=== PATIENT | male | born 1990 | race Caucasian/White ===

== ENCOUNTER 2024-02-01 06:46 | Emergency (ER) | payer BC, SELFPAY ==
[2024-02-01 06:49] VITALS: BP 124/83; PULSE 87; TEMP 36.4; O2SAT 96; BMI 38.1
--- NOTE | 2024-02-01 07:01 | CT_ITS ---
[address] [address] Patient Name: SID VALENTINE MRN: [id number] date: 1990 Sex: M Assigned Patient Location: ER Current Patient Location: Accession/Order Number: [id number] Exam Date: 02/01/2024 08:45 Report Date: 02/01/2024 09:57 At the request of: ERICKA WHITMAN Procedure: CT abdomen pelvis w con EXAMINATION: CT abdomen pelvis w con INDICATION: Abdominal pain, nausea and vomiting, possible hematemesis. COMPARISON: None. TECHNIQUE: Multiple contiguous axial CT images of the abdomen and pelvis were obtained after the administration of intravenous contrast. Sagittal and coronal reconstructions were performed. Dose reduction techniques were achieved by using: automated exposure control and/or adjustment of mA and /or kV according to patient size and/or use of iterative reconstruction technique. FINDINGS: LOWER CHEST: No significant abnormality. ABDOMEN AND PELVIS: LIVER: Diffuse fatty infiltration. BILIARY SYSTEM: Normal gallbladder. No biliary ductal dilatation. PANCREAS: Unremarkable. SPLEEN: Enlarged spleen measuring 19 cm in craniocaudal dimension. ADRENAL GLANDS: Normal. URINARY SYSTEM: Nonobstructing 3 mm right renal stone. Normal left kidney. No hydronephrosis or urolithiasis. Normal bladder. REPRODUCTIVE: Unremarkable. GASTROINTESTINAL TRACT: Normal caliber bowel. No bowel wall thickening or inflammation. Normal appendix. VESSELS: Nonaneurysmal abdominal aorta. Patent abdominal vasculature. LYMPH NODES: No adenopathy. PERITONEUM: No ascites or pneumoperitoneum. MUSCULOSKELETAL: SOFT TISSUES: Unremarkable soft tissues. BONES: No acute osseous abnormality or suspicious osseous lesion. CENTENO: (series:image) CT/CT abdomen pelvis w con IMPRESSION: 1. No acute abdominal or pelvic process. 2. Right nephrolithiasis. 3. Hepatic steatosis. 4. Splenomegaly. Electronically authenticated by: SENAIT BRENNER Date: 02/01/2024 09:57
--- NOTE | 2024-02-01 07:04 | ED_ITS ---
HPI - Nausea/Vomiting/Diarrhea General Chief complaint: Nausea/Vomiting/Diarrhea Stated complaint: VOMITING Time Seen by Provider: 02/01/24 06:59 Source: patient Mode of arrival: walk-in Limitations: no limitations History of Present Illness HPI Narrative: After one week of diarrhea and nausea, the patient began vomiting last night. He vomited all throughout the night with some of the bouts of emesis looking l yonatan coffee grounds . No blood in stool. He denied any recent travel outside of the area. no known ill exposures. Had admitted to some vague, diffuse abdominal cramping. No focal abd pain. No flank or back pain. No headache, neck pain, visual changes or fever/chills. He denied any urinary complaints. This morning he drank a small cup of water and so far he has not vomited that up. He sad that his diarrhea stopped about 12 hours ago. He takes semaglutide. PMHx includes HTN, depression, anxiety On further discussion, he admitted to about 6-8 months of intermittent GI symptoms including nausea, abdominal cramping and diarrhea. Related Data Home Medications ?Medication ?Instructions ?Recorded ?Confirmed alprazolam 0.5 mg tablet mg 02/01/24 fluvoxamine 50 mg tablet mg 02/01/24 metoprolol tartrate 50 mg tablet mg 02/01/24 semaglutide (weight loss) 2.4 mg subcut 02/01/24 mg/0.75 mL subcutaneous pen injector (Karelyvy) Previous Rx's ?Medication ?Instructions ?Recorded ondansetron 4 mg disintegrating 4 mg PO Q6H PRN nausea and 02/01/24 tablet vomiting #20 tabs Allergies Allergy/AdvReac Type Severity Reaction Status Date / Time amoxicillin Allergy Unknown Unknown Verified 02/01/24 06:53 cefaclor [From Ceclor] Allergy Unknown Unknown Verified 02/01/24 06:53 Sulfa (Sulfonamide Allergy Unknown Unknown Verified 02/01/24 06:53 Antibiotics) sulfamethoxazole Allergy Unknown Unknown Verified 02/01/24 06:53 [From Bactrim] trimethoprim [From Bactrim] Allergy Unknown Unknown Verified 02/01/24 06:53 Exam Narrative Exam Narrative: Nurses notes and vital signs reviewed and patient is not hypoxic. afebrile General: Well-appearing and in no apparent distress. Skin: Warm, dry, no pallor noted. No rash. Neck: Supple, non-tender. No meningismus Eye: Pupils are equal, round and EOMI. No scleral icterus. Ears, Nose, Mouth, and Throat: Oral mucosa is dry Cardiovascular: Regular Rate and Rhythm without murmur, gallop or rub. Respiratory: No accessory muscle use or respiratory distress. Lungs are clear to auscultation, no wheezing, rales or rhonchi Back: No CVA tenderness Musculoskeletal: normal ROM GI: Abdomen is soft, non-distended. Normal bowel sounds. No masses appreciated. No tenderness to palpation. No rebound, guarding, or rigidity noted. Neurological: A&O x4. No cranial nerve dysfunction observed. No truncal ataxia. Moves all extremities. Sensation intact. Psychiatric: Cooperative and interactive. Normal mood and affect. Constitutional Vital Signs, click to edit/add: Last Vital Signs Temp 97.6 F 02/01/24 06:49 Pulse 87 02/01/24 06:49 Resp 16 02/01/24 06:49 BP 124/83 02/01/24 06:49 Pulse Ox 96 02/01/24 06:49 O2 Del Method Room Air 02/01/24 06:49 Course Vital Signs Vital signs: Vital Signs Temperature 97.6 F 02/01/24 06:49 Pulse Rate 87 02/01/24 06:49 Respiratory Rate 16 02/01/24 06:49 Blood Pressure 124/83 02/01/24 06:49 Pulse Oximetry 96 02/01/24 06:49 Oxygen Delivery Method Room Air 02/01/24 06:49 Temperature 97.6 F 02/01/24 06:49 Pulse Rate 87 02/01/24 06:49 Respiratory Rate 16 02/01/24 06:49 Blood Pressure 124/83 02/01/24 06:49 Pulse Oximetry 96 02/01/24 06:49 Oxygen Delivery Method Room Air 02/01/24 06:49 MDM - Nausea/Vomiting/Diarrhea MDM Narrative Medical decision making narrative: After I saw and examined the patient, I asked the nurse to establish peripheral IV access. Blood was drawn and sent for testing. Patient received a liter of normal saline IV fluid, IV Zofran and IV Phenergan. He was ordered to undergo CT scanning of the abdomen pelvis with both oral and IV contrast To further evaluate his complaint of possible hematemesis And help determine a cause for his vomiting and diarrhea. Results - White blood cell count minimally elevated at 11.3. Hemoglobin, hematocrit and platelets are normal. No left shift noted. Normal CMP, negative Lipase. CT did not reveal any acute abdominal or pelvic process. He does have incidental finding of hepatic steatosis, mild splenomegaly and right nephrolithiasis without ureterolithiasis. Patient with decreased nausea and no vomiting or diarrhea after ED treatment while the patient awaited test results. Discussed his use of semaglutide - starting about one year ago - and subsequent development of increased GI symptoms - cramping, nausea, diarrhea - about 2 months after that. But he admitted that he has been suffering from GI symptoms for 8 or more years. We discussed keeping a food diary and following up with Dr Andrea on an out-patient basis to be re-evaluated and discuss need for GI referral, if necessary. Results of all Emergency Department tests were reviewed with the patient. Diagnosis discussed. Patient was discharged home with prescription for Zofran, instruction to maintain clear liquid diet and advance as tolerated. ED return if she worsens Lab Data Attestation: I reviewed the patient's lab results. Labs: Lab Results 02/01/24 Range/Units 07:15 WBC 11.3 H (4.0-11.0) 10^3/uL RBC 5.64 (4.70-6.10) 10^6/uL Hgb 16.4 (14.0-18.0) g/dL Hct 46.2 (42.0-54.0) % MCV 81.9 (80.0-94.0) fL MCH 29.1 (25.9-34.0) pg MCHC 35.5 H (29.9-35.2) g/dL RDW 12.8 (11.0-15.0) % Plt Count 242 (150-450) 10^3/uL MPV 10.1 (9.5-13.5) fL Neut % (Auto) 73.2 (43.0-75.0) % Lymph % (Auto) 15.0 L (20.5-60.0) % [place] % (Auto) 7.6 (1.7-12.0) % Eos % (Auto) 3.4 (0.9-7.0) % Baso % (Auto) 0.4 (0.2-2.0) % Neut # (Auto) 8.3 H (1.4-6.5) 10^3/uL Lymph # (Auto) 1.7 (1.2-3.8) 10^3/uL [place] # (Auto) 0.9 H (0.3-0.8) 10^3/uL Eos # (Auto) 0.4 (0.0-0.7) 10^3/uL Baso # (Auto) 0.0 (0.0-0.1) 10^3/uL Abs Immat Gran (auto) 0.04 H (0.00-0.03) 10^3/uL Imm/Tot Granulo (auto) 0.4 (0.0-0.5) % Sodium 137 (136-145) mmol/L Potassium 4.0 (3.5-5.1) mmol/L Chloride 101 (98-107) mmol/L Carbon Dioxide 27.4 (21.0-32.0) mmol/L Anion Gap 12.6 BUN 12.0 (7.0-18.0) mg/dL Creatinine 1.11 (0.70-1.30) mg/dL Est GFR ( Amer) >60 (>=60) Est GFR (Non-Af Amer) >60 (>=60) BUN/Creatinine Ratio 10.8 Glucose 97 (74-106) mg/dL Calcium 9.5 (8.5-10.1) mg/dL Total Bilirubin 0.8 (0.2-1.0) mg/dL AST 23 (15-37) U/L ALT 47 (16-63) U/L Alkaline Phosphatase 78 (46-116) U/L Total Protein 7.5 (6.4-8.2) g/dL Albumin 4.3 (3.4-5.0) g/dL Globulin 3.2 g/dL Albumin/Globulin Ratio 1.3 Lipase 32.0 (16.0-77.0) U/L Imaging Data CT scan - abdomen: Radiologist's impression: ITS Impressions Abdomen/Pelvis CT 02/01/24 07:01 IMPRESSION: 1. No acute abdominal or pelvic process. 2. Right nephrolithiasis. 3. Hepatic steatosis. 4. Splenomegaly. Electronically authenticated by: SENAIT BRENNER Date: 02/01/2024 09:57 Discharge Plan Discharge Stand Alone Forms: Portal Instructions Chief Complaint: Nausea/Vomiting/Diarrhea Clinical Impression: Gastroenteritis Patient Disposition: Home, Self-Care Time of Disposition Decision: 10:08 Prescriptions / Home Meds: New ondansetron 4 mg tablet,disintegrating 4 mg PO Q6H PRN (Reason: nausea and vomiting) Qty: 20 0RF No Action alprazolam 0.5 mg tablet metoprolol tartrate 50 mg tablet fluvoxamine 50 mg tablet Wegovy 2.4 mg/0.75 mL pen injector SUBCUT Print Language: Italian Instructions: Gastroenteritis (ED), Acute Nausea and Vomiting (ED) Referrals: ANTONIETA ANDREA [Primary Care Provider] - 1 week
[2024-02-01] MEDS: ONDANSETRON PF 4 MG/2 ML VIAL IV (07:24)
[2024-02-01] MEDS: PROMETHAZINE HCL 12.5 MG in 0.9 % SODIUM CHLORIDE 50 ML 202 MG IV (07:24)
[2024-02-01] MEDS: 0.9 % SODIUM CHLORIDE 1,000 ML 999 ML IV (07:24)
[2024-02-01 07:25] LABS: Basophils Percent Auto 0.4 % (0.2-2.0); Eosinophils Absolute Auto 0.4 10^3/uL (0.0-0.7); Eosinophils Percent Auto 3.4 % (0.9-7.0); Hematocrit 46.2 % (42.0-54.0); Hemoglobin 16.4 g/dL (14.0-18.0); Immature Granulocytes Abs Auto 0.04 10^3/uL (0.00-0.03); Immature Granulocytes Pct Auto 0.4 % (0.0-0.5); Lymphocytes Absolute Auto 1.7 10^3/uL (1.2-3.8); Mean Corpuscular HGB Conc 35.5 g/dL (29.9-35.2); Mean Corpuscular Hemoglobin 29.1 pg (25.9-34.0); Mean Corpuscular Volume 81.9 fL (80.0-94.0); Mean Platelet Volume 10.1 fL (9.5-13.5); Monocytes Absolute Auto 0.9 10^3/uL (0.3-0.8); Monocytes Percent Auto 7.6 % (1.7-12.0); Neutrophils Absolute Auto 8.3 10^3/uL (1.4-6.5); Neutrophils Percent Auto 73.2 % (43.0-75.0); Platelet Count 242 10^3/uL (150-450); Red Blood Count 5.64 10^6/uL (4.70-6.10); Red Cell Distribution Width 12.8 % (11.0-15.0); White Blood Count 11.3 10^3/uL (4.0-11.0)
[2024-02-01] MEDS: PANTOPRAZOLE SODIUM 40 MG VIAL IV (07:39)
[2024-02-01 07:40] LABS: Alanine Aminotransferase 47 U/L (16-63); Albumin Globulin Ratio 1.3; Albumin Level 4.3 g/dL (3.4-5.0); Alkaline Phosphatase 78 U/L (46-116); Anion Gap 12.6; Aspartate Amino Transferase 23 U/L (15-37); BUN Creatinine Ratio 10.8; Bilirubin Total 0.8 mg/dL (0.2-1.0); Calcium 9.5 mg/dL (8.5-10.1); Carbon Dioxide 27.4 mmol/L (21.0-32.0); Chloride 101 mmol/L (98-107); Estimated GFR (African America >60 (>=60); Estimated GFR (Non-African Ame >60 (>=60); Globulin 3.2 g/dL; Glucose 97 mg/dL (74-106); Sodium 137 mmol/L (136-145); Total Protein 7.5 g/dL (6.4-8.2)
== END 2024-02-01 10:21 | disposition home or self-care (01) ==
PROVIDERS: Emergency Provider Emergency Medicine; PCP Family Medicine
DX: K52.9 Noninfective gastroenteritis and colitis, unspecified (principal); I10 Essential (primary) hypertension; F32.A Depression, unspecified; F41.9 Anxiety disorder, unspecified
CPT/HCPCS: 36415; 74177; 80053; 83690; 85025; 87045; 87046; 87427; 87493; 87507; 96361; 96365; 96375; 99285; J2250; J2405; Q9966; Q9967

== ENCOUNTER 2024-06-15 09:35 | Emergency (ER) | payer BC, SELFPAY ==
[2024-06-15 09:45] VITALS: BP 129/95; PULSE 90; TEMP 36.8; O2SAT 98; BMI 39.8
--- OUTSIDE RECORDS SUMMARY | 2024-06-15 09:56 | XMS_ITS | CCD ---
Author Organization [facility] Inform ion Partnership [facility] Care Team Providers Care Computer Information Systems Instructor Name Role Phone MADONNA VALENZUELA Consulting Unavailable MADONNA VALENZUELA Attending Unavailable MADONNA VALENZUELA Admitting Unavailable Furlong DOLeonides Primary Care Provider Renetta IMAGE SCIENTIST-BUFFER INFLATED PADTracy Primary Care Provider Furlong DO, Leonides Smalls Primary Care Provider [phone] DOMINICK LIPSCOMB Attending Unavailable TRACY JACKSON Referring Unavailable FURLONG, LEONIDES Smalls Primary Care Unavailable FURLONG, LEONIDES Smalls Attending Unavailable TRACY JACKSON Referring Unavailable FURLONG, LEONIDES Smalls Primary Care Unavailable TRACY JACKSON Attending Unavailable TRACY JACKSON Referring Unavailable TRACY JACKSON Primary Care Unavailable FURLONG, LEONIDES G Attending Unavailable FURLONG, LEONIDES G Referring Unavailable FURLONG, LEONIDES G Primary Care Unavailable DESMOND ALAS Attending Unavailable FURLONG, LEONIDES G Referring Unavailable FURLONG, LEONIDES G Primary Care Unavailable Allergies Allergy Classification Reported Allergen(s) Allergy Type Date of Onset Reaction(s) Facility (12 sources) Amoxicillin; Translations: [AMOXICILLIN (BULK)] Drug Allergy 06-30-19 16 [facility] Work Phone: (12 sources) Cefaclor; Translations: [CEFACLOR] Drug Allergy 06-30-19 16 Hives, [facility] (12 sources) Sulfamethoxazole / Trimethoprim; Translations: [SULFAMETHOXAZOLE-TR IMETHOPRIM] Drug Allergy 07-12-19 12 Hives, Other (See Comments), Critical access hospital (12 sources) Sulfonamides (Antibiotic); Translations: [SULFA (SULFONAMIDE ANTIBIOTICS)] Propensity to adverse reactions to drug 01-11-20 17 Vomiting [facility] (6 sources) Sulfacetamide / Sulfur; Translations: [SULFACETAMIDE [id number]] Drug Allergy 11-25-19 20 Other (See Comments) [facility] Medications Current Medications Medication Drug Class(es) Dates Sig (Normalized) Sig (Original) [id number] 200 actuat albuterol 0.09 mg/actuat metered dose inhaler (4 sources) beta2-Adrenergic Agonist Start: 05-05-2024 take 2 puff(s) by mouth every six hours as needed albuterol (PROVENTIL HFA;VENTOLIN HFA) 90 mcg/actuation inhaler Indications: COVID-19 TAKE 2 PUFFS BY MOUTH EVERY 6 HOURS NEEDED FOR WHEEZE OR FOR SHORTNESS OF BREATH 6.7 g 1 05/05/2024 Active Start: 04-16-2024 End: 05-05-2024 take 2 puff(s) by inhalation every six hours as needed for wheezing albuterol (PROVENTIL HFA;VENTOLIN HFA) 90 mcg/actuation inhaler Indications: COVID-19 Inhale 2 puffs every 6 (six) hours as needed for wheezing or shortness of breath. 6.7 g 04/16/2024 05/05/2024 Discontinued ALPRAZolam 0.5 mg oral tablet (11 sources) Benzodiazepine Start: 01-23-2024 take 1 tablet by mouth once daily as needed for anxiety ALPRAZolam (XANAX) 0.5 mg tablet Indications: Anxiety Take 1 tablet (0.5 mg total) by mouth daily as needed for anxiety. 30 tablet 01/23/2024 Active Start: 03-04-2023 take 1 tablet by ronni th once daily as needed for anxiety ALPRAZolam (XANAX) 0.5 mg tablet Indications: Anxiety Take 1 tablet (0.5 mg total) by mouth daily as needed for anxiety. 30 tablet 0 03/04/2023 Active aspirin 81 mg delayed release oral tablet (11 sources) Platelet Aggregation Inhibitor, Nonsteroidal Anti-inflammatory Drug take 1 tablet by mouth in the morning aspirin 81 mg Take 1 tablet (81 mg total) by mouth in the morning. Active benzonatate 100 mg oral capsule (3 sources) Non-narcotic Antitussive Start: take 1 capsule by mouth three times daily as needed for cough benzonatate (TESSALON PERLES) 100 mg capsule Indications: COVID-19 Take 1 capsule (100 mg total) by mouth 3 (three) times a day as needed for cough. 30 capsule 04/16/2024 Active 24 hr buPROPion hydrochloride 150 mg extended release oral tablet (2 sources) Aminoketone Start: take 1 tablet by mouth once daily in the morning buPROPion XL (WELLBUTRIN XL) 150 mg 24 hr tablet Indications: Generalized anxiety disorder Take 1 tablet (150 mg total) by mouth every morning. 90 tablet 1 08/08/2023 Active fluvoxaMINE maleate 50 mg oral tablet (16 sources) Serotonin Reuptake Inhibitor Start: End: fluvoxaMINE (LUVOX) 50 mg tablet Take 1tablet at bedtime daily 90 tablet 1 04/17/2024 Active Start: 08-16-2023 fluvoxaMINE (L UVOX) 50 mg tablet Take 1.5 tablets at bedtime daily 45 tablet 1 08/16/2023 Active Start: 07-22-2023 End: 08-15-2023 fluvoxaMINE (LUVOX) 50 mg ta blet Take 1.5 tablets at bedtime daily 45 tablet 0 07/22/2023 08/15/2023 Discontinued (Reorder) Start: 04-11-2023 End: 07-19-2023 fluvoxaMINE (LUVOX) 50 mg ta blet Take 1.5 tablets at bedtime daily 45 tablet 1 06/21/2023 07/19/2023 Discontinued (Reorder) ibuprofen 800 mg oral tablet (3 sources) Nonsteroidal Anti-inflammatory Drug Start: 04-16-2024 take 1 tablet by mouth every eight hours as needed for pain ibuprofen (MOTRIN) 800 mg tablet Indications: Chest wall pain Take 1 tablet (800 mg total) by mouth every 8 (eight) hours as needed for pain. 30 tablet 04/16/2024 Active metoprolol tartrate 50 mg oral tablet (14 sources) beta-Adrenergic Yony Start: 01-23-2024 End: 04-16-2024 take 1 tablet by mouth in the morning, then take 1 tablet by mouth at bedtime metoprolol tartrate (LOPRESSOR) 50 mg tablet Take 1 tablet (50 mg total) by mouth in the morning and 1 tablet (50 mg total) before bedtime. 180 tablet 3 04/17/2024 Active Start: 05-24-2023 End: 07-22-2023 take 1 tablet by mouth in the morning, then take 1 tablet by mouth at bedtime metoprolol tartrate (LOPRESSOR) 50 mg tablet Take 1 tablet (50 mg total) by mouth in the morning and 1 tablet (50 mg total) before bedtime. 180 tablet 0 07/22/2023 Active nirmatrelvir-ritonavir (PAXLOVID) tablets (2 sources) Start: 04-16-2024 End: 04-21-2024 take 3 tablets by mouth in the morning nirmatrelvir-ritonavir (PAXLOVID) tablets Indications: COVID-19 Take 3 tablets by mouth in the morning and 3 tablets before bedtime. Do all this for 5 days. HOLD alprazolam while taking this medication. 30 tablet 04/16/2024 04/21/2024 Active semaglutide, weight loss, (WEGOVY) 2.4 mg/0.75 mL pen injector (12 sources) Start: 04-17-2024 semaglutide, weight loss, (WEGOVY) 2.4 mg/0.75 mL pen injector Inject 0.75 mL (2.4 mg total) under the skin every 7 days. 9 mL 04/17/2024 Active Start: 01-28-2024 End: 04-16-2024 semaglutide, weight loss, (W EGOVY) 2.4 mg/0.75 mL pen injector Inject 0.75 mL (2.4 mg total) under the skin every 7 days. 9 mL 01/28/2024 04/16/2024 Discontinued (Reorder) Start: 01-28-2024 semaglutide, w eight loss, (WEGOVY) 2.4 mg/0.75 mL pen injector Inject 0.75 mL (2.4 mg total) under the skin every 7 days. 9 mL 01/28/2024 Active Start: 06-05-2023 semaglutide, w eight loss, (WEGOVY) 2.4 mg/0.75 mL pen injector Inject 0.75 mL (2.4 mg total) under the skin every 7 days. 9 mL 3 06/05/2023 Active Completed/Discontinued Medications Medication Drug Class(es) Dates Sig (Normalized) Sig (Original) loratadine 10 mg oral tablet (7 sources) End: 08-08-2023 take 1 tablet by mouth in the morning loratadine (CLARITIN) 10 mg tablet Take 1 tablet (10 mg total) by mouth in the morning. 0 08/08/2023 Discontinued (Therapy completed) omeprazole 40 mg delayed release oral capsule (1 source) Proton Pump Inhibitor Start: 02-04-2024 End: 04-16-2024 take 1 capsule by mouth in the morning omeprazole (PriLOSEC) 40 mg capsule Take 1 capsule (40 mg total) by mouth in the morning. 30 capsule 1 02/04/2024 04/16/2024 Discontinued (Therapy completed) ondansetron 4 mg disintegrating oral tablet (1 source) Serotonin-3 Receptor Antagonist Start: 02-01-2024 End: 04-16-2024 ondansetron ODT (ZOFRAN ODT) 4 mg disintegrating tablet DISSOLVE 1 (ONE) TABLET ON THE TONGUE EVERY 6 HOURS NEEDED FOR NAUSEA AND VOMITING 02/01/2024 04/16/2024 Discontinued (Therapy completed) semaglutide, weight loss, (WEGOVY) 2.4 mg/0.75 mL pen injector (7 sources) Start: 06-05-2023 End: 08-08-2023 semaglutide, weight loss, (WEGOVY) 2.4 mg/0.75 mL pen injector Indications: Morbid obesity due to excess calories (CMS-HCC) Inject 0.75 mL (2.4 mg total) under the skin every 7 days. 9 mL 3 06/05/2023 08/08/2023 Discontinued (Therapy completed) Start: 06-05-2023 semaglutide, w eight loss, (WEGOVY) 2.4 mg/0.75 mL pen injector Indications: Morbid obesity due to excess calories (CMS-HCC) Inject 0.75 mL (2.4 mg total) under the skin every 7 days. 9 mL 3 06/05/2023 Active Problems Active Problems Problem Classification Problem Date Documented Da te Episodic/Chronic Anxiety disorders (20 sources) Anxiety; Translations: [Anxiety disorder, unspecified] Onset: 10-15-2016 08-09-2022 Chronic Essential hypertension (13 sources) Essential hypertension; Translations: [Essential (primary) hypertension] Onset: 08-09-2022 08-09-2022 Chronic Heart valve disorders (11 sources) Mitral valve prolapse; Translations: [Nonrheumatic mitral (valve) prolapse] Onset: 07-12-2011 08-09-2022 Chronic Other nutritional; endocrine; and metabolic disorders (11 sources) Morbid obesity; Translations: [Morbid (severe) obesity due to excess calories] Onset: 12-28-2016 08-09-2022 Chronic Other nutritional; endocrine; and metabolic disorders (1 source) Body mass index 30+ - obesity; Translations: [Obesity, unspecified] 08-08-2023 Chronic Other nutritional; endocrine; and metabolic disorders (1 source) Morbid (severe) obesity due to excess calories; Translations: [Morbid (severe) obesity due to excess calories] Onset: 08-09-2022 Chronic Other nutritional; endocrine; and metabolic disorders (1 source) Obesity, unspecified; Translations: [Obesity, unspecified] Onset: 08-08-2023 Chronic Pneumonia (except that caused by tuberculosis or sexually transmitted disease) (1 source) Pneumonia, unspecified organism; Translations: [PNEUMONIA UNSPECIFIED ORGANISM] Onset: 12-23-2020 Episodic Residual codes; unclassified (1 source) Reduced libido; Translations: [Decreased libido] 08-08-2023 Episodic Substance-related disorders (1 source) Nicotine dependence, unspecified, uncomplicated; Translations: [Nicotine dependence, unspecified, uncomplicated] Onset: 12-05-2023 Chronic Unclassified (3 sources) CONTACT W/AND (SUSP) EXPOS COVID-19; Translations: [CONTACT W/AND (SUSP) EXPOS COVID-19] Onset: 12-23-2020 Unclassified (1 source) Annual Exam Onset: 12-24-2023 Unclassified (1 source) medication discussion Onset: 12-05-2023 Unclassified (1 source) Weight Check Onset: 08-08-2023 Viral infection (2 sources) Disease caused by 2019-nCoV; Translations: [COVID-19] 04-16-2024 Episodic Viral infection (1 source) COVID-19; Translations: [COVID-19] Onset: 04-16-2024 Past or Other Problems Problem Classification Problem Date Documented Date Episodic/Chronic Acute cerebrovascular disease (11 sources) Cerebrovascular accident; Translations: [Cerebral infarction, unspecified] Onset: 12-28-2016 Resolved: 08-09-2022 08-09-2022 Chronic Cardiac dysrhythmias (20 sources) Atypical atrial flutter; Translations: [Atypical atrial flutter] Onset: 12-28-2016 Resolved: 08-09-2022 08-09-2022 Chronic Cardiac dysrhythmias (11 sources) Palpitations; Translations: [Palpitations] Onset: 07-22-2011 08-09-2022 Episodic Conduction disorders (11 sources) First degree atrioventricular block; Translations: [Atrioventricular block, first degree] Onset: 07-22-2011 Resolved: 08-09-2022 08-09-2022 Chronic Mood disorders (11 sources) Mood disorders Onset: 03-04-2023 Resolved: 02-04-2024 03-04-2023 Nonspecific chest pain (13 sources) Chest pain; Translations: [Chest pain, unspecified] Onset: 07-22-2011 Resolved: 08-09-2022 08-09-2022 Episodic Other and ill-defined heart disease (11 sources) Left ventricular hypertrophy; Translations: [Cardiomegaly] Onset: 12-28-2016 Resolved: 08-09-2022 08-09-2022 Chronic Other and unspecified benign neoplasm (11 sources) Lipoma of abdominal wall; Translations: [Benign lipomatous neoplasm of skin and subcutaneous tissue of trunk] Onset: 09-27-2016 08-09-2022 Episodic Other circulatory disease (11 sources) Disorder of autonomic nervous system; Translations: [Orthostatic hypotension] Onset: 07-14-2011 08-09-2022 Episodic Residual codes; unclassified (1 source) Tobacco use; Translations: [Tobacco use] Onset: 12-24-2023 Episodic Syncope (11 sources) Syncope; Translations: [Syncope and collapse] Onset: 07-12-2011 Resolved: 08-09-2022 08-09-2022 Episodic Transient cerebral ischemia (11 sources) Transient cerebral ischemia; Translations: [Transient cerebral ischemic attack, unspecified] Onset: 08-09-2022 Resolved: 08-09-2022 08-09-2022 Chronic Unclassified (1 source) CONTACT W/AND (SUSP) EXPOS COVID-19; Translations: [CONTACT W/AND (SUSP) EXPOS COVID-19] Onset: 12-17-2020 Unclassified (5 sources) Onset: 08-08-2023 Resolved: 04-16-2024 08-08-2023 Results Test Name Value Interpretation Reference Range Facility COMPREHENSIVE METABOLIC PANE [facility] 12-20-2021 Albumin [Mass/Vol] 5.0 g/dL Normal 3.6-5.1 [facility] Comment on above: Performed By: #### 1 023, 7600 #### [facility] [place] [address] Circular Stuffer: Eddie Kwong MD Albumin/Globulin [Mass ratio] 2.0 {ratio} Normal 1.0-2.5 [facility] Comment on above: Performed By: #### 1 023, 7600 #### [facility] [place] [address] Circular Stuffer: Eddie Kwong MD ALP [Catalytic activity/Vol] 65 U/L Normal 36-130 [facility] Comment on above: Performed By: #### 1 0231, 7600 #### [facility] [place] [address] Circular Stuffer: Eddie Kwong MD ALT [Catalytic activity/Vol] 55 U/L High 9-46 [facility] Comment on above: Performed By: #### 1 0231, 7600 #### [facility] [place] [address] Circular Stuffer: Eddie Kwong MD AST [Catalytic activity/Vol] 32 U/L Normal 10-40 [facility] Comment on above: Performed By: #### 1 0231, 7600 #### [facility] [place] [address] Circular Stuffer: Eddie Kwong MD Bilirubin [Mass/Vol] 0.7 mg/dL Normal 0.2-1.2 [facility] Comment on above: Performed By: #### 1 0231, 7600 #### [facility] of [place] [address] Circular Stuffer: Eddie Kwong MD BUN/CREATININE RATIO NOT APPLICABLE Normal 6-22 [facility] Comment on above: Performed By: #### 1 0231, 7600 #### [facility] of [address], [address] [place] [address] Circular Stuffer: Eddie Kwong MD Calcium [Mass/Vol] 10.2 mg/dL Normal 8.6-10.3 [facility] Comment on above: Performed By: #### 1 023, 7600 #### [facility] of [place] [address] Circular Stuffer: Eddie Kwong MD Chloride [Moles/Vol] 104 mmol/L Normal 98-110 [facility] Comment on above: Performed By: #### 1 023, 7600 #### [facility] of [place] [address] Circular Stuffer: Eddie Kwong MD CO2 [Moles/Vol] 24 mmol/L Normal 20-32 [facility] Comment on above: Performed By: #### 1 0231, 7600 #### [facility] of [place] [address] Circular Stuffer: Eddie Kwong MD Creatinine [Mass/Vol] 0.81 mg/dL Normal 0.60-1.35 [facility] Comment on above: Performed By: #### 1 0231, 7600 #### [facility] of [place] [address] Circular Stuffer: Eddie Kwong MD eGFR NON-AFR. INDONESIAN 118 mL/min/1.73m2 Normal > OR = 60 [facility] Comment on above: Performed By: #### 1 0231, 7600 #### [facility] of [place] [address] Circular Stuffer: Eddie Kwong MD GFR/1.73 sq M.predicted among blacks MDRD (S/P/Bld) [Vol rate/Area] 137 mL/min/{1.73_m2} Normal > OR = 60 [facility] Comment on above: Performed By: #### 1 0231, 7600 #### [facility] [place] [address] Circular Stuffer: Eddie Kwong MD Globulin (S) [Mass/Vol] 2.5 g/dL Normal 1.9-3.7 [facility] Comment on above: Performed By: #### 1 023, 7600 #### [facility] [place] [address] Circular Stuffer: Eddie Kwong MD Glucose [Mass/Vol] 80 mg/dL Normal 65-99 [facility] Comment on above: Result Comment: Fasting reference interval Performed By: #### 1 230, 7600 #### [facility] [place] [address] Circular Stuffer: Eddie Kwong MD Potassium [Moles/Vol] 4.3 mmol/L Normal 3.5-5.3 [facility] Comment on above: Performed By: #### 1 023, 7600 #### [facility] [place] [address] Circular Stuffer: Eddie Kwong MD Protein [Mass/Vol] 7.5 g/dL Normal 6.1-8.1 [facility] Comment on above: Performed By: #### 1 023, 7600 #### [facility] [place] [address] Circular Stuffer: Eddie Kwong MD Sodium [Moles/Vol] 139 mmol/L Normal 135-146 [facility] Comment on above: Performed By: #### 1 0231, 7600 #### [facility] of [place] [address] Circular Stuffer: Eddie Kwong MD Urea nitrogen [Mass/Vol] 11 mg/dL Normal 7-25 [facility] Comment on above: Performed By: #### 1 0231, 7600 #### [facility] [address], [address] [place] [address] Circular Stuffer: Eddie Kwong MD LIPID PANEL, [facility] 0 Cholesterol [Mass/Vol] 216 mg/dL High <200 [facility] Comment on above: Order Comment: FASTI NG:YES FASTING: YES Performed By: #### 1 0231, 7600 #### [facility] [address], [address] [place] [address] Circular Stuffer: Eddie Kwong MD Cholesterol in HDL [Mass/Vol] 60 mg/dL Normal > OR = 40 [facility] Comment on above: Order Comment: FASTI NG:YES FASTING: YES Performed By: #### 1 0231, 7600 #### [facility] [address], [address] [place] [address] Circular Stuffer: Eddie Kwong MD Cholesterol.total/C holesterol in HDL [Mass ratio] 3.6 {ratio} Normal <5.0 [facility] Comment on above: Order Comment: FASTI NG:YES FASTING: YES Performed By: #### 1 0231, 7600 #### [facility] [address], [address] [place] [address] Circular Stuffer: Eddie Kwong MD LDL-CHOLESTEROL Normal [facility] Comment on above: Order Comment: FASTI NG:YES FASTING: YES Result Comment: LDL cholesterol not calculated. Triglyceride levels greater than 400 mg/dL invalidate calculated LDL results. Reference range: <100 Desirable range <100 mg/dL for primary prevention; <70 mg/dL for patients with CHD or diabetic patients with > or = 2 CHD risk factors. LDL-C is now calculated using the Thom calculation, which is a validated novel method providing better accuracy than the Friedewald equation in the estimation of LDL-C. Rafal CHACON et al. ILIANA. 2013;310(19): 9304-6015 (http://education.Commutable.Silent Power/faq/SLO380) Performed By: #### 1 0231, 7600 #### [facility] [address], [address] Circular Stuffer: Eddie Kwong MD NON HDL CHOLESTEROL 156 mg/dL (calc) High <130 [facility] Comment on above: Order Comment: FASTI NG:YES FASTING: YES Result Comment: For patients with diabetes plus 1 major ASCVD risk factor, treating to a non-HDL-C goal of <100 mg/dL (LDL-C of <70 mg/dL) is considered a therapeutic option. Performed By: #### 1 0231, 7600 #### [facility] [address], [address] [place], [place] [id number] Circular Stuffer: Eddie Kwong MD Triglyceride [Mass/Vol] 406 mg/dL High <150 [facility] Comment on above: Order Comment: FASTI NG:YES FASTING: YES Result Comment: If a non-fasting specimen was collected, consider repeat triglyceride testing on a fasting specimen if clinically indicated. Danyel et al. J. of Clin. Lipidol. 2015;9:129-169. Performed By: #### 1 023, 0 #### [facility] [address], [address] [place], [place] [id number] Circular Stuffer: Eddie Kwong MD Covid-19 PCR ([facility])on SARS-CoV-2 (COVID-19) RNA ISABEL+probe Ql (Unsp spec) Not detected Normal NOT DETECTED [facility] Comment on above: Result Comment: This test is not yet approved or cleared by the [place] FDA. When there are no FDA-approved or cleared tests available, and other criteria are met, FDA can make tests available under an emergency access mechanism called an Emergency Use Authorization (EUA). The EUA for this test is supported by the Broadcast Checker of Health and Human Service's (HHS's) declaration that circumstances exist to justify the emergency use of in vitro diagnostics for the detection and/or diagnosis of the virus that causes COVID-19. This EUA will remain in effect (meaning this test can be used) for the duration of the COVID-19 declaration justifying emergency of IVDs, unless it is terminated or revoked by FDA (after which the test may no longer be used). When diagnostic testing is negative, the possibility of a false negative should be considered in the context of a patient's recent exposures and the presence of clinical signs and symptoms consistent with SARS-CoV-2. Performed By: #### C CINDY NEALTB #### [facility] [address] [place] [address] Phoebe Woo SYMPTOMATIC COVID-19 ANTIGEN on 12-17-2020 EUA Statement SEE BELOW Normal [facility] Comment on above: Result Comment: This test has not been FDA cleared or approved, but has been authorized by the FDA under an Emergency Use Authorization (EUA) for use by authorized laboratories certified under CLIA that meet the requirements to perform moderate or high complexity testing. This test has been authorized only for the detection of proteins from SARS-CoV-2, not for any other viruses or pathogens. The emergency use of this test is authorized for the duration of the declaration that circumstances exist justifying the authorization of emergency use of in vitro diagnostic tests for detection and/or diagnosis of Covid-19 under section 564(b)(1) of the Act, 21 U.S.C. 360bbb-3(b)(1), unless the declaration is terminated or authorization is revoked sooner. Performed By: #### C FAYE NEAL #### [facility] [address] [place] [address] Phoebe Woo SARS-CoV-2 (COVID-19) RNA ISABEL+probe Ql (Unsp spec) Negative Normal NEGATIVE [facility] Comment on above: Performed By: #### C VAL CVDTB #### [facility] [address] [place] [address] Phoebe Woo XR chest 2V*on 12-17-2020 XR chest 2V* [facility] [place] [address] [place] [address] XRay Report Signed Patient: Moy Bledsoe MR#: [id number] : 1990 Acct:[id number] Age/Sex: 30 / M ADM Date: 12/17/20 Loc: XDUC Room: Type: [facility] Attending Dr: Madonna MARTINO Ordering Provider: MADONNA VALENZUELA Date of Service: 12/17/20 XR/XR chest 2V*: Contact with and (suspected) exposure to other viral communi Copies to: MADONNA VALENZUELA PA AND LATERAL CHEST: CLINICAL HISTORY: Cough for the past 2 weeks. COMPARISON: None A loop recorder is noted. There is no focal parenchymal consolidation, effusion or pneumothorax. The cardiac, hilar and mediastinal silhouettes are within normal limits. There is no vascular congestion. The visualized bony thorax is intact. XR/XR chest 2V* IMPRESSION: NO ACUTE CARDIOPULMONARY ABNORMALITY. Impression dictated by: Amna Cazares M.D.12/17/2020 10:48 AM Dictation Location: [place] [address] Transcribed By: [facility] 12/17/20 1048 Dictated By: Amna Cazares MD 12/17/20 1047 Signed By: 12/17/20 1048 [facility] Vital Signs Date Time Vital Sign Value Performing Clinician Rocíoi gabe 08-08-2023 08:12-0500 Body height 190.5 cm Tracy Jackson MALINDA Work Phone: [facility] 08-08-2023 08:12-0500 Body mass index (BMI) [Ratio] 39.55 kg/m2 Tracy Jackson JEFFERSON-BUFFER INFLATED PAD Work Phone: [facility] 08-08-2023 08:12-0500 Body temperature 98.2 [degF] Tarcy Jackson ASPENBUFFER INFLATED PAD Work Phone: [facility] 08-08-2023 08:12-0500 Body weight 143.52 kg Tracy Jackson IMAGE SCIENTIST-BUFFER INFLATED PAD Work Phone: [facility] 08-08-2023 08:12-0500 Diastolic blood pressure 60 mm[Hg] Tracy Jackson JEFFERSON-[employer] INFLATED PAD Work Phone: [facility] 08-08-2023 08:12-0500 Heart rate 91 /min Tracy Jackson JEFFERSON[employer]ATED PAD Work Phone: [facility] 08-08-2023 08:12-0500 SaO2% (BldA) [Mass fraction] 96 % Tracy Jackson IMAGE SCIENTIST-BUFFER INFLATED PAD Work Phone: [facility] Desti 08-08-2023 08:12-0500 Systolic blood pressure 110 mm[Hg] Tracy Jackson IMAGE SCIENTIST-BUFFER INFLATED PAD Work Phone: [facility] Encounters Encounter Date Encounter Type Care Provider Facility Start: 05-05-2024 End: 05-05-2024 Refill Desmond Landry Alas IMAGE SCIENTIST-FOAM RUBBER MOLDER Work Phone: [facility] Comment on above: COVID-19 Start: 04-16-2024 End: 04-16-2024 Office outpatient visit 15 minutes Desmond Alas IMAGE SCIENTIST-FOAM RUBBER MOLDER Work Phone: [facility] Comment on above: COVID-19 (Primary Dx ); Chest wall pain Start: 04-16-2024 End: 04-17-2024 Refill [facility] DO Work Phone: [facility] Start: 02-04-2024 End: 02-04-2024 ambulatory [facility] Start: 12-24-2023 End: 12-24-2023 ambulatory [facility] Start: 12-24-2023 Encounter for genera l adult medical examination without abnormal findings [facility] Start: 12-05-2023 End: 12-05-2023 ambulatory [facility] Start: 08-15-2023 Refill Tracy Jackson IMAGE SCIENTIST-BUFFER INFLATED PAD Work Phone: [facility] Start: 08-08-2023 End: 08-08-2023 Office outpatient visit 25 minutes Tracy Jackson IMAGE SCIENTIST-BUFFER INFLATED PAD Work Phone: [facility] Comment on above: Obesity (BMI 30-39.9 ) (Primary Dx); Generalized anxiety disorder; Essential (primary) hypertension; Loss of libido Start: 08-08-2023 End: 08-08-[address] [facility] Start: 07-31-2023 Telephone encounter Leonides Serina Sotelo juan f DO Work Phone: [facility] Start: 07-22-2023 Refill Tracy Jackson IMAGE SCIENTIST-BUFFER INFLATED PAD Work Phone: [facility] Start: 07-19-2023 Refill Leonides huynh DO Work Phone: [facility] Start: 07-11-2023 Refill Abiola Nikki DARIN [facility] Start: 06-20-2023 Refill Tracy Jackson IMAGE SCIENTIST-BUFFER INFLATED PAD Work Phone: [facility] Start: 12-17-2020 End: 12-17-2020 ambulatory MADONNA VALENZUELA Facility: Procedures Date Procedure Procedure Detail Performing Clinician Start: 02-04-2024 Follow-up visit Follow-up LEONIDES ANDREA Start: 02-04-2024 Adult depression screening assessment Desmond Sandersillo IMAGE SCIENTIST-FOAM RUBBER MOLDER Work Phone: Start: 08-08-2023 Adult depression screening assessment Tracy Jackson IMAGE SCIENTIST-BUFFER INFLATED PAD Work Phone: Start: 03-04-2023 Adult depression screening assessment Tracy Jackson IMAGE SCIENTIST-BUFFER INFLATED PAD Work Phone: Plan of Treatment Date Care Activity Detail Author Start: 04-16-2025 Adult BMI Follow Up Plan Adult BMI Follow Up Plan [facility] Start: 04-16-2025 Tobacco Screening Tobacco Screening [facility] Start: 02-03-2025 Adult BMI Screening Adult BMI Screen ing [facility] Start: 02-03-2025 Depression Screening Depression Scre ening [facility] Start: 08-08-2024 Adult BMI Follow Up Plan Adult BMI Follow Up Plan [facility] Start: 08-08-2024 Adult BMI Screening Adult BMI Screen ing [facility] Start: 08-08-2024 Depression Screening Depression Scre ening [facility] Start: 08-08-2024 Tobacco Screening Tobacco Screening [facility] Start: 03-04-2024 Adult BMI Screening Adult BMI Screen ing [facility] Start: 03-04-2024 Depression Screening Depression Scre ening [facility] Start: 03-04-2024 Tobacco Screening Tobacco Screening [facility] Start: 02-16-2024 COVID-19 Vaccine ( season) COVID-19 Vaccine ( season) [facility] Start: 02-16-2024 Influenza vaccination Influenza Vacc ine [facility] Start: 02-15-2023 COVID-19 Vaccine ( season) COVID-19 Vaccine ( season) [facility] Start: 02-15-2023 Influenza vaccination Influenza Vacc ine [facility] Start: 2008 Adult BMI Follow Up Plan Adult BMI Follow Up Plan [facility] Start: 2001 DTaP,Tdap and Td Vaccines (6 - Tdap) DTaP,Tdap and Td Vaccines (6 - Tdap) [facility] Immunizations Immunization Date Immunization Notes Care Provider [facility] 04-24-2023 influenza, injectabl e, quadrivalent, preservative free Tracy Jackson IMAGE SCIENTIST-BUFFER INFLATED PAD Work Phone: [facility] 04-24-2023 influenza virus vaccine, unspecified formulation Desmond Alas IMAGE SCIENTIST-FOAM RUBBER MOLDER Work Phone: [facility] 04-10-2022 Covid-19, Mrna, Lnp- s, Bivalent, Pf, 50mcg/0.5ml or 25mcg/0.25ml Tracy Jackson IMAGE SCIENTIST-BUFFER INFLATED PAD Work Phone: [facility] 04-10-2022 influenza, injectabl e, quadrivalent, contains preservative Tracy Jackson IMAGE SCIENTIST-BUFFER INFLATED PAD Work Phone: [facility] 04-10-2022 influenza virus vaccine, unspecified formulation Tracy Jackson IMAGE SCIENTIST-BUFFER INFLATED PAD Work Phone: [facility] 04-29-2021 influenza, seasonal, injectable Tracy Jackson IMAGE SCIENTIST-BUFFER INFLATED PAD Work Phone: [facility] 10-12-2020 COVID-19, mRNA, LNP- S, PF, 100mcg/0.5mL Dose Tracy Jackson IMAGE SCIENTIST-BUFFER INFLATED PAD Work Phone: [facility] 09-28-2020 COVID-19, mRNA, LNP- S, PF, 100mcg/0.5mL Dose Tracy Jackson IMAGE SCIENTIST-BUFFER INFLATED PAD Work Phone: [facility] 09-14-2020 COVID-19, mRNA, LNP- S, PF, 100mcg/0.5mL Dose Tracy Jackson IMAGE SCIENTIST-BUFFER INFLATED PAD Work Phone: [facility] 04-20-2020 influenza, injectabl e, quadrivalent, contains preservative Tracy Jackson IMAGE SCIENTIST-BUFFER INFLATED PAD Work Phone: [facility] 03-19-2019 Influenza, injectabl e, Madin [place] Canine Kidney, preservative free, quadrivalent Tracy Jackson IMAGE SCIENTIST-BUFFER INFLATED PAD Work Phone: [facility] 06-18-2000 hepatitis B vaccine, pediatric or pediatric/adolescent dosage Tracy Jackson IMAGE SCIENTIST-BUFFER INFLATED PAD Work Phone: [facility] 12-18-1999 hepatitis B vaccine, pediatric or pediatric/adolescent dosage Tracy Jackson IMAGE SCIENTIST-BUFFER INFLATED PAD Work Phone: [facility] 11-17-1999 hepatitis B vaccine, pediatric or pediatric/adolescent dosage Tracy Jackson IMAGE SCIENTIST-BUFFER INFLATED PAD Work Phone: [facility] 09-23-1995 diphtheria, tetanus toxoids and acellular pertussis vaccine, unspecified formulation Trcay Jackson IMAGE SCIENTIST-BUFFER INFLATED PAD Work Phone: [facility] 09-23-1995 measles, mumps and rubella virus vaccine Tracy Jackson IMAGE SCIENTIST-BUFFER INFLATED PAD Work Phone: [facility] 09-23-1995 trivalent poliovirus vaccine, live, oral Tracy Jackson IMAGE SCIENTIST-BUFFER INFLATED PAD Work Phone: [facility] 02-29-1992 diphtheria, tetanus toxoids and pertussis vaccine Tracy Jackson IMAGE SCIENTIST-BUFFER INFLATED PAD Work Phone: [facility] 02-29-1992 trivalent poliovirus vaccine, live, oral Tracy Jackson IMAGE SCIENTIST-BUFFER INFLATED PAD Work Phone: [facility] 12-14-1991 haemophilus influenz ae type b vaccine, conjugate unspecified formulation Tracy Jackson IMAGE SCIENTIST-BUFFER INFLATED PAD Work Phone: [facility] 12-14-1991 measles, mumps and rubella virus vaccine Tracy Jackson IMAGE SCIENTIST-BUFFER INFLATED PAD Work Phone: [facility] 03-02-1991 diphtheria, tetanus toxoids and pertussis vaccine Tracy Jacksno IMAGE SCIENTIST-BUFFER INFLATED PAD Work Phone: [facility] 03-02-1991 haemophilus influenz ae type b vaccine, conjugate unspecified formulation Tracy Jackson IMAGE SCIENTIST-BUFFER INFLATED PAD Work Phone: [facility] 1990 diphtheria, tetanus toxoids and pertussis vaccine Tracy Jackson IMAGE SCIENTIST-BUFFER INFLATED PAD Work Phone: [facility] 1990 haemophilus influenz ae type b vaccine, conjugate unspecified formulation Tracy Jackson IMAGE SCIENTIST-BUFFER INFLATED PAD Work Phone: [facility] 1990 trivalent poliovirus vaccine, live, oral Tracy Jackson IMAGE SCIENTIST-BUFFER INFLATED PAD Work Phone: [facility] 1990 diphtheria, tetanus toxoids and pertussis vaccine Tracy Jackson IMAGE SCIENTIST-BUFFER INFLATED PAD Work Phone: [facility] 1990 haemophilus influenz ae type b vaccine, conjugate unspecified formulation Tracy Jackson IMAGE SCIENTIST-BUFFER INFLATED PAD Work Phone: [facility] 1990 trivalent poliovirus vaccine, live, oral Tracy Jackson IMAGE SCIENTIST-BUFFER INFLATED PAD Work Phone: [facility] Payers Date Payer Category Payer Blue Cross Blue Shie ld Managed Care - Other ANTHEM Member Subscriber Plan / Payer (Effective 2016-Present) Name: Moy Bledsoe Relation to Subscriber: Self Name: Moy Bledsoe Payer ID: [id number] (NAIC) Type: Not on file Address: [address] [place] [id number] 2016 Unknown ANTHEM BCBS OUT OF STATE PPO/TRUST [id number] 2016-Present [phone] [id number] [place], [place] [address] [id number] 1990 Unknown [id number] 1990 Unknown [id number] 1990 Unknown [id number] 1990 Unknown [id number] 1990 Unknown [id number] 1990 Unknown [id number] 1959 Unknown [id number] Social History Date Type Detail Facility Start: 08-09-2022 Tobacco smoking status NHIS Ex-smoker [facility] History of tobacco use Current smoker [facility] History of tobacco use Cigarette Smoker [facility] Start: 08-09-2022 Tobacco use and exposure Smokeless tobacco non-user [facility] Start: 03-04-2023 End: 04-16-2024 Alcohol intake Current drinker of alcohol (finding) [facility] Start: 03-04-2023 End: 12-24-2023 History of Social function [facility] Start: 03-04-2023 End: 12-24-2023 Tobacco use panel [facility] Adolescent depressio n screening assessment 18 [facility] Start: 08-09-2022 Alcohol Comment occasionally [facility] Start: 1990 Sex Assigned At Not on file [facility] Start: 1990 Sex Assigned At Male [facility] Start: 08-05-2023 Gender identity Identifies as male gender (finding) [facility] Has the [employer], [employer], or water company threatened to shut off services in your home in past 12Mo No [facility] Do you belong to any clubs or organizations such as zoroastrianism groups, unions, fraternal or athletic groups, or school groups? Yes [facility] Are you now , , , , never or living with a partner? [facility] How often to you hav e a drink containing alcohol? Monthly or less [facility] How many standard dr inks containing alcohol do you have on a typical day? 1 or 2 [facility] How often do you hav e 6 or more drinks on 1 occasion? Never [facility] Do you feel stress - tense, restless, nervous, or anxious, or unable to sleep at night because your mind is troubled all the time - these days [OSQ] Very much [facility] Start: 01-20-2015 Sex Male (finding) [facility] Clinical Notes 07-31-2023 to 04-16-2024 Desmond Alas APRN-FOAM RUBBER MOLDER - 04/16/2024 4:20 PM Monica Jackson, JEFFERSON-BUFFER INFLATED PAD - 08/08/2023 8:00 AM ESTTelephone Encounter - [facility] [address] - 07/31/2023 11:48 AM EST Note Date & Type Note Facility 04-16-2024 History of Presen t illness Narrative Images from the original note were not included. [address] [place] [address] SUBJECTIVE: Video Visit via Real-time Synchronous Audiovisual Provider Location: [facility] [address] [facility] [address] Patient Location: Patient's home Video Visit Consent Statement: I discussed risks, benefits, and alternatives of a real-time synchronous audiovisual consultation with the patient (and any accompanying persons) including the risks that the patient's personal health details and medical records will be discussed over real-time, synchronous, interactive video/audio/telecommunication technology, the visit will not be recorded without the express consent of both the provider and the patient, and that there are some limitations compared to [id number] evaluations. The patient consented to the presence of additional virtual and/or in-person participants. We elected to proceed. Patient ID: Moy Bledsoe is a 33 y.o. male. Chief Complaint Patient presents with COVID States onset of symptoms started on April 14. Tested positive for COVID with home testing today. Symptoms include cough, sore throat, runny nose, chest tightness with deep breaths, fatigue, body aches, chills, congestion. Had one episode of diarrhea yesterday. URI This is a new problem. The current episode started in the past 7 days. The problem has been gradually worsening. There has been no fever. Associated symptoms include congestion, coughing, headaches, joint pain, rhinorrhea, sinus pain and a sore throat. Pertinent negatives include no chest pain or dysuria. He has tried sleep and increased fluids (Nasal decongestant) for the symptoms. The treatment provided no relief. The following portions of the patient's history were reviewed and updated as appropriate: allergies, current medications, past family history, past medical history, past social history, past surgical history and problem list. Past Surgical History: Procedure Laterality Date CARDIAC SURGERY NM RENAL FLOW LASIX WISDOM TOOTH EXTRACTION Past Medical History: Diagnosis Date A-fib ([facility]) Anxiety Depression First degree AV block 07/22/2011 Hyperlipidemia Hypertension Left ventricular hypertrophy 12/28/2016 Last Assessment & Plan: Mild left ventricular hypertrophy noted on echocardiogram performed February 2016 but the patient has a strong family history of hypertrophic cardiomyopathy in in at least 3 family members. Cardiac MRI performed at [facility] in 2015 did not show any features suggestive of hypertrophic cardiomyopathy. FREIRE (nonalcoholic steatohepatitis) Neurologic cardiac syncope 07/12/2011 Stroke (CMS-HCC) TIA (transient ischemic attack) 08/09/2022 Immunization History Administered Date(s) Administered COVID-19, mRNA, LNP-S, PF, 100mcg/0.5mL Dose 09/14/2020, 09/28/2020, 10/12/2020, 04/29/2021 Covid-19, Mrna, Lnp-s, Bivalent, Pf, 50mcg/0.5ml or 25mcg/0.25ml 04/10/2022 Covid-19, Mrna, Lnp-s, Pf,luke-sucrose,30 Mcg/0.3ml Fall23 04/24/2023 DTP 1990, 1990, 03/02/1991, 02/29/1992 DTaP, Unspecified 09/23/1995 Hep B, Adolescent or Pediatric 11/17/1999, 12/18/1999, 06/18/2000 HiB 1990, 1990, 03/02/1991, 12/14/1991 Influenza, Im Trivalent Preservative 04/29/2021 Influenza, Injectable, Mdck, Preservative Free, Quad 03/19/2019 Influenza, Injectable, Quadrivalent 04/20/2020, 04/10/2022 Influenza, Injectable, quadrivalent (PF) 04/24/2023 MMR 12/14/1991, 09/23/1995 OPV 1990, 1990, 02/29/1992, 09/23/1995 REVIEW OF SYSTEMS: Review of Systems Constitutional: Positive for fatigue. Negative for chills and fever. HENT: Positive for congestion, postnasal drip, rhinorrhea, sinus pain, sore throat and voice change. Negative for hearing loss and trouble swallowing. Eyes: Negative for pain and visual disturbance. Respiratory: Positive for cough and chest tightness. Negative for shortness of breath. Cardiovascular: Negative for chest pain, palpitations and leg swelling. Gastrointestinal: Negative for blood in stool. Endocrine: Negative for polydipsia, polyphagia and polyuria. Genitourinary: Negative for difficulty urinating, dysuria, flank pain, hematuria, scrotal swelling and testicular pain. Musculoskeletal: Positive for joint pain and myalgias. Skin: Negative. Allergic/Immunologic: Negative. Neurological: Positive for headaches. Negative for seizures and syncope. Hematological: Does not bruise/bleed easily. Psychiatric/Behavioral: Negative. PHYSICAL EXAMINATION: There were no vitals filed for this visit. Deferred, Telehealth Video Visit Patient noted to have elevated BMI and the following intervention(s) were applied: encouragement to exercise. Physical Exam Deferred, Telehealth Video Visit ASSESSMENT/PLAN: Moy was seen today for covid. Diagnoses and all orders for this visit: COVID-19 - nirmatrelvir-ritonavir (PAXLOVID) tablets; Take 3 tablets by mouth in the morning and 3 tablets before bedtime. Do all this for 5 days. HOLD alprazolam while taking this medication. - benzonatate (TESSALON PERLES) 100 mg capsule; Take 1 capsule (100 mg total) by mouth 3 (three) times a day as needed for cough. - albuterol (PROVENTIL HFA;VENTOLIN HFA) 90 mcg/actuation inhaler; Inhale 2 puffs every 6 (six) hours as needed for wheezing or shortness of breath. Chest wall pain - ibuprofen (MOTRIN) 800 mg tablet; Take 1 tablet (800 mg total) by mouth every 8 (eight) hours as needed for pain. Education regarding COVID symptoms and recovery. He does have history of HTN, mitral valve prolapse, and atypical atrial flutter history. Therefore, he meets criteria for Paxlovid. Discussed action of medication and potential side effects, which may include diarrhea. New orders for Tessalon Perles PRN as directed for cough Albuterol MDI PRN as directed for shortness of breath and wheezing. Patient request ibuprofen 800 mg for chest wall discomfort. ALL QUESTIONS ANSWERED Total time spent was 20 minutes: Preparing to see the patient (e.g., review of tests) Obtaining and/or reviewing separately obtained history Performing a medically appropriate examination and/or evaluation Counseling and educating the patient/family/caregiver Ordering medications, tests, or procedures Follow-up: Next scheduled HAZEL Pratt 04/16/24 1647 documented in this encounter [facility] 08-08-2023 History of Presen t illness Narrative Subjective Patient ID: Moy Bledsoe is a 33 y.o. male. Here for weight check on wegoSibaritus, in Feb he was 338, today he is 316 He is hoping by summer to be below 300 and in another year to be below 250 No issues with side effects Unfortunately he has been working a lot of 12 hour shifts so not much opportunity to exercise He has been having some issues with libido lately - he has low sex drive, he feels this is likely from his luvox but he is also having a lot of work stress He has a new positition and has a lot of responsibility with it The following portions of the patient's history were reviewed and updated as appropriate: allergies, current medications, past family history, past medical history, past social history, past surgical history, problem list, and medication reconciliation was completed including current medication and post discharge medication. Review of Systems Constitutional: Positive for fatigue. Eyes: Negative. Respiratory: Negative. Cardiovascular: Negative. Gastrointestinal: Negative. Endocrine: Negative. Genitourinary: Negative. Change in libido Allergic/Immunologic: Negative. Neurological: Negative. Hematological: Negative. Psychiatric/Behavioral: The patient is nervous/anxious. Objective Physical Exam Vitals and nursing note reviewed. Constitutional: Appearance: Normal appearance. He is obese. HENT: Head: Normocephalic. Eyes: Conjunctiva/sclera: Conjunctivae normal. Neck: Vascular: No carotid bruit. Cardiovascular: Rate and Rhythm: Normal rate and regular rhythm. Heart sounds: Normal heart sounds. No murmur heard. Pulmonary: Effort: Pulmonary effort is normal. Breath sounds: Normal breath sounds. Musculoskeletal: Right lower leg: No edema. Left lower leg: No edema. Lymphadenopathy: Cervical: No cervical adenopathy. Skin: General: Skin is warm and dry. Capillary Refill: Capillary refill takes less than 2 seconds. Neurological: Mental Status: He is alert and oriented to person, place, and time. Psychiatric: Thought Content: Thought content normal. Judgment: Judgment normal. Assessment/Plan Moy was seen today for weight check. Diagnoses and all orders for this visit: Obesity (BMI 30-39.9) Generalized anxiety disorder - buPROPion XL (WELLBUTRIN XL) 150 mg 24 hr tablet; Take 1 tablet (150 mg total) by mouth every morning. Essential (primary) hypertension Loss of libido Continue wegovy for weight loss and encourage activity to enhance weight loss efforts - he is doing well with this and discussed his technician terminal and repeater goals His blood pressure is stable and no changes made today He is having some side effects with his luvox, will try adding wellbutrin to see if this helps with regaining his libido 3 months for next visit Patient noted to have elevated BMI and the following intervention(s) were applied: encouragement to exercise. The OARRS/MAPPS database was reviewed today and found to be appropriate. No indication of medication diversion, or non compliance. MALINDA Tsai 08/08/23 1124 [facility]23 Miscellaneous Notes Formattin g of this note might be different from the original. ----- Message from MALINDA Tsai sent at 07/22/2023 11:00 AM EST ----- Regarding: apt is due I am refilling his meds but he is due for an apt Attempted contact alek lucas documented in this encounter [facility]-31-2023 Telephone encount er Note ----- Message from MALINDA Tsai sent at 07/22/2023 11:00 AM EST ----- Regarding: apt is due I am refilling his meds but he is due for an apt [facility] 07-31-2023 Telephone encount er Note Attempted contact alek lucas [facility] note Diagnosis Obesity (BMI 30-39.9)- Primary Generalized anxiety disorder Essential (primary) hypertension Unspecified essential hypertension Loss of libido Decreased libido [facility] Diagnosis COVID-19- Primary Chest wall pain Painful respiration [facility] Diagnosis COVID-19 documented [facility] filedocumented in this encounter [facility] filedocumented in this encounter [facility] on filedocumented in this encounter [facility] on filedocumented in this encounter [facility]* Attachments The following attachments cannot be sent through Care Everywhere. * COVID-19 overview (Azerbaijani) documented in [facility] on [facility] Purpose Family History No Family History Records FoundNo Family History Records FoundNo Family History Records FoundNo Family History Records Found Advance Directives No Advanced Directives Records FoundNo Advanced Directives Records FoundNo Advanced Directives Records FoundNo Advanced Directives Records Found Additional Source Comments (unrecognized sect ion and content) No Status Records FoundNo Status Records FoundNo Status Records FoundNo Status Records Found INFORMATION SOURCE (unrecogn ized section and content) DATE CREATED AUTHOR 12/24/2020 [facility] DATE CREATED AUTHOR AUTHOR'S ORGANIZ ATION 07/09/2021 [facility] DATE CREATED AUTHOR AUTHOR'S ORGANIZ ATION 12/20/2021 [facility] DATE CREATED AUTHOR AUTHOR'S ORGANIZ ATION 04/18/2024 [facility] Reason for Visit (unrecogniz ed section and content) Reason Onset Date Comments Med Refill 06/20/2023 Reason Onset Date Comments Med Refill 07/11/2023 Reason Onset Date Comments Med Refill 07/22/2023 Reason Onset Date Comments Med Refill 07/19/2023 Reason Comments Weight Check Reason Onset Date Comments Med Refill 08/15/2023 Reason Comments COVID Reason Onset Date Comments Med Refill 04/16/2024 Reason Comments Med Refill Care Teams (unrecognized sec tion and content) Computer Information Systems Instructor Relationship Specialty Start Date End Date Emre Leonidesfabian Smalls DO [address] [place] [address] PCP - General Family Medicine 04/16/22 Computer Information Systems Instructor Relationship Specialty Start Date End Date Leonides Andrea DO [address] [place] [address] PCP - General Family Medicine 04/16/22 Computer Information Systems Instructor Relationship Specialty Start Date End Date Leonides Andrea DO [address] [place] [address] PCP - General Family Medicine 04/16/22 Computer Information Systems Instructor Relationship Specialty Start Date End Date JesseTracy benitez, IMAGE SCIENTIST-[facility] [address] [facility] [place] [address] PCP - General Internal Medicine 08/05/23 Computer Information Systems Instructor Relationship Specialty Start Date End Date Renetta Vicky, IMAGE SCIENTIST-[facility] [address] [facility] [place] [address] PCP - General Internal Medicine 08/05/23 Computer Information Systems Instructor Relationship Specialty Start Date End Date Leonides Andrea DO [address] [address] PCP - General Family Medicine 12/05/23 Computer Information Systems Instructor Relationship Specialty Start Date End Date Leonides Andrea DO [address], [place] [address] PCP - General Family [facility] 12/05/23 Computer Information Systems Instructor Relationship Specialty Start Date End Date Leonides Andrea DO [address], [place] [address] PCP - General Family Medicine 12/05/23 FOR RECORDS PERTAINING TO PATIENTS WHO ARE OR HAVE BEEN ENROLLED IN A CHEMICAL DEPENDENCY/SUBSTANCEABUSE PROGRAM, SOME INFORMATION MAY BE OMITTED. This clinical summary was aggregated from multiple sources. Caution should be exercised in using it in the provision of clinical care. This summary normalizes information from multiple sources, and as a consequence, information in this document may materially change the coding, format and clinical context of patient data. In addition, data may be omitted in some cases. CLINICAL DECISIONS SHOULD BE BASED ON THE PRIMARY CLINICAL RECORDS. [facility]. provides no warranty or guarantee of the accuracy or completeness of information in this document.
--- NOTE | 2024-06-15 09:58 | CT_ITS ---
[address] [address] Patient Name: SID VALENTINE MRN: [id number] date: 1990 Sex: M Assigned Patient Location: ER Current Patient Location: Accession/Order Number: [id number] Exam Date: 06/15/2024 10:40 Report Date: 06/15/2024 11:05 At the request of: JAMESON CONTI Procedure: CT abdomen pelvis w con EXAMINATION: CT abdomen pelvis w con HISTORY: lower abd pain/GI bleeding COMPARISON: CT abdomen pelvis 02/01/2024 TECHNIQUE: Axial, Coronal, and Sagittal images were obtained without and/or with IV contrast as indicated by examination type. Dose reduction techniques were achieved by using automated exposure control and/or adjustment of mA and/or kV according to patient size and/or use of iterative reconstruction technique. FINDINGS: LUNG BASES: No visible pulmonary or pleural disease. LIVER: No enlargement, atrophy, suspicious density, or significant focal lesion. BILIARY: No dilatation or calcification. PANCREAS: No lesion, fluid collection, or abnormal duct dilatation. SPLEEN: Mild splenomegaly; unchanged. ADRENALS: No mass or enlargement. KIDNEYS: No mass, obstruction, or calcification. BOWEL/MESENTERY: A few small diverticula involving the sigmoid colon; no acute inflammatory changes. No visible mass, obstruction, or bowel wall thickening. Normal appendix. AORTA/VASCULAR: No aneurysm or dissection. RETROPERITONEUM: No mass or adenopathy. LYMPH NODES: No adenopathy. URINARY BLADDER: No visible focal wall thickening, lesion, or calculus. PELVIC ORGANS: No visible mass. Pelvic organs appropriate for patient age. ABDOMINAL WALL: No mass or hernia. BONES: No bony lesion or fracture. OTHER: Negative. CT/CT abdomen pelvis w con IMPRESSION: 1. No acute or suspicious findings to account for patient's symptoms. 2.Mild diverticulosis of distal colon. Electronically authenticated by: MARYSE WOODARD Date: 06/15/2024 11:05
--- NOTE | 2024-06-15 10:04 | ED.ABDPAIN1 ---
HPI - Abdominal Pain General Chief Complaint: Abdominal Pain Stated Complaint: CONSTIPATED Time Seen by Provider: 06/15/24 09:39 History of Present Illness HPI narrative: Patient presents to ED complaining of lower abdominal pain and cramping. Patient states he started with a GI bug Saturday morning at about 2 AM. He had nausea vomiting diarrhea. He now feels like he has to have a bowel movement but is unable to go. He said just a little bit of blood comes out when he asked to go. He said he feels lower abdominal pressure and cramping and feels like he is constipated and something needs to come out but nothing is coming out except for a little bit of blood. He said the nausea is gone the vomiting is gone and he feels better in that regard however he feels now like he may be constipated because he constantly feels like he has to go to the bathroom but nothing is happening. He said his abdominal pain is lower in the suprapubic area. He does have a history of possible IBS. No history of diverticulitis or other bowel disease that he knows about. Alert and oriented x 3 in no acute distress Related Data Home Medications ?Medication ?Instructions ?Recorded ?Confirmed alprazolam 0.5 mg tablet mg 02/01/24 fluvoxamine 50 mg tablet mg 02/01/24 metoprolol tartrate 50 mg tablet mg 02/01/24 semaglutide (weight loss) 2.4 mg subcut 02/01/24 mg/0.75 mL subcutaneous pen injector (Jani) Previous Rx's ?Medication ?Instructions ?Recorded ondansetron 4 mg disintegrating 4 mg PO Q6H PRN nausea and 02/01/24 tablet vomiting #20 tabs ciprofloxacin HCl 500 mg tablet 500 mg PO BID 5 days #10 tabs 06/15/24 (Cipro) Allergies Allergy/AdvReac Type Severity Reaction Status Date / Time amoxicillin Allergy Unknown Unknown Verified 06/15/24 09:42 cefaclor (From Ceclor) Allergy Unknown Unknown Verified 06/15/24 09:42 Sulfa (Sulfonamide Allergy Unknown Unknown Verified 06/15/24 09:42 Antibiotics) sulfamethoxazole (From Allergy Unknown Unknown Verified 06/15/24 09:42 Bactrim) trimethoprim (From Bactrim) Allergy Unknown Unknown Verified 06/15/24 09:42 Review of Systems ROS Status of ROS 10 or more systems reviewed and unremarkable except as noted in history and below PFSH PFSH Social History Little interest or pleasure in doing things: not at all Feeling down, depressed, or hopeless: not at all Exam Narrative Exam Narrative: Time Seen: [] Vital Signs: [Per nurse's notes.] General: [Alert] Skin: [Warm, dry, no rash.] Head: [Normocephalic, atraumatic.] Neck: [Supple, trachea midline.] Eye: [Pupils are equal, round and reactive to light, extraocular movements are intact, normal conjunctiva.] Ears, nose, mouth and throat: oral mucosa moist. Cardiovascular: [Regular rate and rhythm, no murmur.] Respiratory: [Lungs are clear to auscultation, respirations are non-labored, breath sounds are equal.] Chest wall: [No tenderness, no deformity.] Gastrointestinal: [Soft, nontender, non distended, normal bowel sounds.] No rebound no guarding MSK: 5 out of 5 muscle strength x 4 extremities no calf pain or edema Lymphatics: [No lymphadenopathy.] Psychiatric: [Cooperative, appropriate mood & affect.] Neurological: [Alert and oriented to person, place, time, and situation, no focal neurological deficit observed.] Constitutional Vital Signs, click to edit/add: Last Vital Signs Temp 98.2 F 06/15/24 09:45 Pulse 90 06/15/24 09:45 Resp 18 06/15/24 09:45 BP 129/95 H 06/15/24 09:45 Pulse Ox 98 06/15/24 09:45 O2 Del Method Room Air 06/15/24 09:45 Course Vital Signs Vital signs: Vital Signs Temperature 98.2 F 06/15/24 09:45 Pulse Rate 90 06/15/24 09:45 Respiratory Rate 18 06/15/24 09:45 Blood Pressure 129/95 H 06/15/24 09:45 Pulse Oximetry 98 06/15/24 09:45 Oxygen Delivery Method Room Air 06/15/24 09:45 Temperature 98.2 F 06/15/24 09:45 Pulse Rate 90 06/15/24 09:45 Respiratory Rate 18 06/15/24 09:45 Blood Pressure 129/95 H 06/15/24 09:45 Pulse Oximetry 98 06/15/24 09:45 Oxygen Delivery Method Room Air 06/15/24 09:45 MDM - Abdominal Pain MDM Narrative Medical decision making narrative: Patient's labs are negative for acute findings. CT scan does not show any diverticulitis but does show evidence of diverticulosis. Patient has crampy abdominal pain with bloody diarrhea therefore I will place him on Cipro for further care. Return to ED if worsening symptoms otherwise follow-up with family doctor as needed. Return to ED if worsening bleeding. Patient is comfortable with care plan for home. Differential Diagnosis Differential diagnosis: Likely abdominal pain, constipation, diverticulitis, gastroenteritis and small bowel obstruction Lab Data Attestation: I reviewed the patient's lab results. Labs: Lab Results 06/15/24 Range/Units 10:05 WBC 6.4 (4.0-11.0) 10^3/uL RBC 5.31 (4.70-6.10) 10^6/uL Hgb 15.7 (14.0-18.0) g/dL Hct 45.2 (42.0-54.0) % MCV 85.1 (80.0-94.0) fL MCH 29.6 (25.9-34.0) pg MCHC 34.7 (29.9-35.2) g/dL RDW 13.7 (11.0-15.0) % Plt Count 200 (150-450) 10^3/uL MPV 9.5 (9.5-13.5) fL Neut % (Auto) 54.0 (43.0-75.0) % Lymph % (Auto) 31.7 (20.5-60.0) % [place] % (Auto) 9.6 (1.7-12.0) % Eos % (Auto) 3.6 (0.9-7.0) % Baso % (Auto) 0.8 (0.2-2.0) % Neut # (Auto) 3.4 (1.4-6.5) 10^3/uL Lymph # (Auto) 2.0 (1.2-3.8) 10^3/uL [place] # (Auto) 0.6 (0.3-0.8) 10^3/uL Eos # (Auto) 0.2 (0.0-0.7) 10^3/uL Baso # (Auto) 0.1 (0.0-0.1) 10^3/uL Abs Immat Gran (auto) 0.02 (0.00-0.03) 10^3/uL Imm/Tot Granulo (auto) 0.3 (0.0-0.5) % Sodium 140 (136-145) mmol/L Potassium 4.1 (3.5-5.1) mmol/L Chloride 106 (98-107) mmol/L Carbon Dioxide 26.8 (21.0-32.0) mmol/L Anion Gap 11.3 BUN 12.0 (7.0-18.0) mg/dL Creatinine 1.13 (0.70-1.30) mg/dL Est GFR ( Amer) >60 (>=60 mL/min/1.73m^2) Est GFR (Non-Af Amer) >60 (>=60 mL/min/1.73m^2) BUN/Creatinine Ratio 10.6 Glucose 104 (74-106) mg/dL Calcium 9.0 (8.5-10.1) mg/dL Total Bilirubin 0.9 (0.2-1.0) mg/dL AST 31 (15-37) U/L ALT 53 (16-63) U/L Alkaline Phosphatase 67 (46-116) U/L Total Protein 7.2 (6.4-8.2) g/dL Albumin 4.1 (3.4-5.0) g/dL Globulin 3.1 g/dL Albumin/Globulin Ratio 1.[address] scan - abdomen: Radiologist's impression: ITS Impressions Abdomen/Pelvis CT 06/15/24 09:58 IMPRESSION: 1. No acute or suspicious findings to account for patient's symptoms. 2.Mild diverticulosis of distal colon. Electronically authenticated by: MARYSE WOODARD Date: 06/15/2024 11:05 Discharge Plan Discharge Chief Complaint: Abdominal Pain Clinical Impression: Gastroenteritis Patient Disposition: Home, Self-Care Time of Disposition Decision: 11:13 Condition: Good Mode of Transportation: Private Vehicle Prescriptions / Home Meds: New ciprofloxacin HCl [Cipro] 500 mg tablet 500 mg PO BID 5 Days Qty: 10 0RF No Action alprazolam 0.5 mg tablet metoprolol tartrate 50 mg tablet fluvoxamine 50 mg tablet Wegovy 2.4 mg/0.75 mL pen injector SUBCUT ondansetron 4 mg tablet,disintegrating 4 mg PO Q6H PRN (Reason: nausea and vomiting) Qty: 20 0RF Print Language: Luxembourger Instructions: Gastroenteritis (ED) Referrals: ANTONIETA BORREGO [Primary Care Provider] - 1 week Discharge Date/Time: 06/15/24 11:18
[2024-06-15] MEDS: KETOROLAC TROMETHAMINE 30 MG/ML VIAL 15 MG IVP (10:16)
[2024-06-15] MEDS: ONDANSETRON PF 4 MG/2 ML VIAL IV (10:16)
[2024-06-15 10:22] LABS: Basophils Absolute Auto 0.1 10^3/uL (0.0-0.1); Basophils Percent Auto 0.8 % (0.2-2.0); Eosinophils Absolute Auto 0.2 10^3/uL (0.0-0.7); Eosinophils Percent Auto 3.6 % (0.9-7.0); Hematocrit 45.2 % (42.0-54.0); Hemoglobin 15.7 g/dL (14.0-18.0); Immature Granulocytes Abs Auto 0.02 10^3/uL (0.00-0.03); Immature Granulocytes Pct Auto 0.3 % (0.0-0.5); Lymphocytes Percent Auto 31.7 % (20.5-60.0); Mean Corpuscular HGB Conc 34.7 g/dL (29.9-35.2); Mean Corpuscular Hemoglobin 29.6 pg (25.9-34.0); Mean Corpuscular Volume 85.1 fL (80.0-94.0); Mean Platelet Volume 9.5 fL (9.5-13.5); Monocytes Absolute Auto 0.6 10^3/uL (0.3-0.8); Monocytes Percent Auto 9.6 % (1.7-12.0); Neutrophils Absolute Auto 3.4 10^3/uL (1.4-6.5); Platelet Count 200 10^3/uL (150-450); Red Blood Count 5.31 10^6/uL (4.70-6.10); Red Cell Distribution Width 13.7 % (11.0-15.0); White Blood Count 6.4 10^3/uL (4.0-11.0)
[2024-06-15 10:43] LABS: Alanine Aminotransferase 53 U/L (16-63); Albumin Globulin Ratio 1.3; Albumin Level 4.1 g/dL (3.4-5.0); Alkaline Phosphatase 67 U/L (46-116); Anion Gap 11.3; Aspartate Amino Transferase 31 U/L (15-37); BUN Creatinine Ratio 10.6; Bilirubin Total 0.9 mg/dL (0.2-1.0); Carbon Dioxide 26.8 mmol/L (21.0-32.0); Chloride 106 mmol/L (98-107); Estimated GFR (African America >60 (>=60 mL/min/1.73m^2); Estimated GFR (Non-African Ame >60 (>=60 mL/min/1.73m^2); Globulin 3.1 g/dL; Glucose 104 mg/dL (74-106); Potassium 4.1 mmol/L (3.5-5.1); Sodium 140 mmol/L (136-145); Total Protein 7.2 g/dL (6.4-8.2)
== END 2024-06-15 11:18 | disposition home or self-care (01) ==
PROVIDERS: Emergency Provider Emergency Medicine; PCP Family Medicine
DX: K52.9 Noninfective gastroenteritis and colitis, unspecified (principal); K57.30 Diverticulosis of large intestine without perforation or abscess without bleeding
CPT/HCPCS: 36415; 74177; 80053; 85025; 96374; 96375; 99284; J1885; J2405; Q9967

== ENCOUNTER 2024-07-26 07:12 | Emergency (ER) | payer BC, SELFPAY ==
[2024-07-26 07:16] VITALS: BP 124/104; PULSE 127; TEMP 36.6; O2SAT 96; BMI 39.8
[2024-07-26 07:18] VITALS: BP 124/104
--- NOTE | 2024-07-26 07:27 | XR_ITS ---
[address] [address] Patient Name: SID VALENTINE MRN: [id number] date: 1990 Sex: M Assigned Patient Location: ER Current Patient Location: ER Accession/Order Number: [id number] Exam Date: 07/26/2024 07:40 Report Date: 07/26/2024 07:50 At the request of: CURTIS QUIJANO Procedure: XR chest 1V Exam: Radiographs: XR chest 1V Reason for exam: Shortness of breath Comparison: None XR/XR chest 1V IMPRESSION: Unremarkable chest x-ray. Electronically authenticated by: SALLY KAY Date: 07/26/2024 07:50
--- OUTSIDE RECORDS SUMMARY | 2024-07-26 07:29 | XMS_ITS | CCD ---
Author Organization [facility] Inform ion Partnership [facility] Care Team Providers Care Blind Escort Name Role Phone MADONNA VALENZUELA Consulting Unavailable MADONNA VALENZUELA Attending Unavailable MADONNA VALENZUELA Admitting Unavailable Furlong DOLeonides Primary Care Provider Renetta CLOUD ENGAGEMENT PARTNER-ROBOTYPE OPERATORTracy Primary Care Provider Furlong DO, Leonides Smalls Primary Care Provider [phone] DOMINICK LIPSCOMB Attending Unavailable TRACY JACKSON Referring [...] Allergy Type Date of Onset Reaction(s) Facility (14 sources) Amoxicillin; Translations: [AMOXICILLIN (BULK)] Drug Allergy 06-30-19 16 [facility] Work Phone: (14 sources) Cefaclor; Translations: [CEFACLOR] Drug Allergy 06-30-19 16 Hives, [facility] (14 sources) Sulfamethoxazole / Trimethoprim; Translations: [SULFAMETHOXAZOLE-TR IMETHOPRIM] Drug Allergy 07-12-19 12 Hives, Other (See Comments), [facility] (14 sources) Sulfonamides (Antibiotic); Translations: [SULFA (SULFONAMIDE ANTIBIOTICS)] Propensity to adverse reactions to drug 01-11-20 17 Vomiting [facility] (8 sources) Sulfacetamide / Sulfur; Translations: [SULFACETAMIDE [id number]] Drug Allergy 11-25-19 20 Other (See Comments) [facility] Medications Current Medications Medication Drug Class(es) Dates Sig (Normalized) Sig (Original) [id number] 200 actuat albuterol 0.09 mg/actuat metered dose inhaler (6 sources) beta2-Adrenergic Agonist Start: 05-05-2024 take 2 [...] 05/05/2024 Discontinued ALPRAZolam 0.5 mg oral tablet (14 sources) Benzodiazepine Start: 07-01-2024 ALPRAZolam (XA NAX) 0.5 mg tablet Indications: Anxiety TAKE 1 TABLET DAILY NEEDED FOR ANXIETY 30 tablet 07/01/2024 Active Start: 01-23-2024 End: 07-01-2024 take 1 tablet by mouth once daily as needed for anxiety ALPRAZolam (XANAX) 0.5 mg tablet Indications: Anxiety Take 1 tablet (0.5 mg total) by mouth daily as needed for anxiety. 30 tablet 01/23/2024 07/01/2024 Discontinued Start: 03-04-2023 take 1 tablet by ronni th once daily as needed for anxiety ALPRAZolam (XANAX) 0.5 mg tablet Indications: Anxiety Take 1 tablet (0.5 mg total) by mouth daily as needed for anxiety. 30 tablet 0 03/04/2023 Active aspirin 81 mg delayed release oral tablet (13 sources) Platelet Aggregation Inhibitor, Nonsteroidal Anti-inflammatory Drug take 1 tablet by mouth in the morning aspirin 81 mg Take 1 tablet (81 mg total) by mouth in the morning. Active benzonatate 100 mg oral capsule (5 sources) Non-narcotic Antitussive Start: take 1 capsule [...] Active fluvoxaMINE maleate 50 mg oral tablet (18 sources) Serotonin Reuptake Inhibitor Start: End: fluvoxaMINE [...] Discontinued (Reorder) ibuprofen 800 mg oral tablet (5 sources) Nonsteroidal Anti-inflammatory Drug Start: 04-16-2024 take 1 tablet by mouth every eight hours as needed for pain ibuprofen (MOTRIN) 800 mg tablet Indications: Chest wall pain Take 1 tablet (800 mg total) by mouth every 8 (eight) hours as needed for pain. 30 tablet 04/16/2024 Active metoprolol tartrate 50 mg oral tablet (16 sources) beta-Adrenergic Yony Start: 01-23-2024 End: 04-16-2024 [...] loss, (WEGOVY) 2.4 mg/0.75 mL pen injector (15 sources) Start: 07-25-2024 semaglutide, weight loss, (WEGOVY) 2.4 mg/0.75 mL pen injector Indications: Morbid obesity due to excess calories ([facility]) INJECT 0.75 ML (2.4 MG) UNDER THE SKIN EVERY 7 DAYS (MAINTENANCE DOSE) 9 mL 07/25/2024 Active Start: 04-17-2024 End: 07-25-2024 semaglutide, weight loss, (W EGOVY) 2.4 mg/0.75 mL pen injector Inject 0.75 mL (2.4 mg total) under the skin every 7 days. 9 mL 04/17/2024 07/25/2024 Discontinued Start: 04-17-2024 semaglutide, w eight loss, (WEGOVY) 2.4 mg/0.75 [...] unspecified] Onset: 10-15-2016 08-09-2022 Chronic Essential hypertension (15 sources) Essential hypertension; Translations: [Essential (primary) hypertension] Onset: 08-09-2022 08-09-2022 Chronic Heart valve disorders (13 sources) Mitral valve prolapse; Translations: [Nonrheumatic mitral (valve) prolapse] Onset: 07-12-2011 08-09-2022 Chronic Other nutritional; endocrine; and metabolic disorders (15 sources) Morbid obesity; Translations: [Morbid (severe) obesity [...] Date Documented Date Episodic/Chronic Acute cerebrovascular disease (13 sources) Cerebrovascular accident; Translations: [Cerebral infarction, unspecified] Onset: 12-28-2016 Resolved: 08-09-2022 08-09-2022 Chronic Cardiac dysrhythmias (20 sources) Atypical atrial flutter; Translations: [Atypical atrial flutter] Onset: 12-28-2016 Resolved: 08-09-2022 08-09-2022 Chronic Cardiac dysrhythmias (13 sources) Palpitations; Translations: [Palpitations] Onset: 07-22-2011 08-09-2022 Episodic Conduction disorders (13 sources) First degree atrioventricular block; Translations: [Atrioventricular block, first degree] Onset: 07-22-2011 Resolved: 08-09-2022 08-09-2022 Chronic Mood disorders (13 sources) Mood disorders Onset: 03-04-2023 Resolved: 02-04-2024 03-04-2023 Nonspecific chest pain (15 sources) Chest pain; Translations: [Chest pain, unspecified] Onset: 07-22-2011 Resolved: 08-09-2022 08-09-2022 Episodic Other and ill-defined heart disease (13 sources) Left ventricular hypertrophy; Translations: [Cardiomegaly] Onset: 12-28-2016 Resolved: 08-09-2022 08-09-2022 Chronic Other and unspecified benign neoplasm (13 sources) Lipoma of abdominal wall; Translations: [Benign lipomatous neoplasm of skin and subcutaneous tissue of trunk] Onset: 09-27-2016 08-09-2022 Episodic Other circulatory disease (13 sources) Disorder of autonomic nervous system; Translations: [Orthostatic hypotension] Onset: 07-14-2011 08-09-2022 Episodic Residual codes; unclassified (1 source) Tobacco use; Translations: [Tobacco use] Onset: 12-24-2023 Episodic Syncope (13 sources) Syncope; Translations: [Syncope and collapse] Onset: 07-12-2011 Resolved: 08-09-2022 08-09-2022 Episodic Transient cerebral ischemia (13 sources) Transient cerebral ischemia; Translations: [Transient cerebral ischemic attack, unspecified] Onset: 08-09-2022 Resolved: 08-09-2022 08-09-2022 Chronic Unclassified (1 source) CONTACT W/AND (SUSP) EXPOS COVID-19; Translations: [CONTACT W/AND (SUSP) EXPOS COVID-19] Onset: 12-17-2020 Unclassified (7 sources) Onset: 08-08-2023 Resolved: 04-16-2024 08-08-2023 Results Test Name Value Interpretation Reference Range [facility] 12-20-2021 Albumin [Mass/Vol] 5.0 g/dL Normal 3.6-5.1 [facility] Comment on above: Performed By: #### 1 477, 6076 #### [facility] [address] [address] Cream Ripener: Eddie Kwong MD Albumin/Globulin [Mass ratio] 2.0 {ratio} Normal 1.0-2.5 [facility] Comment on above: Performed By: #### 1 690, 4350 #### [facility] [address] [address] Cream Ripener: Eddie Kwong MD ALP [Catalytic activity/Vol] 65 U/L Normal 36-130 [facility] Comment on above: Performed By: #### 1 568, 8050 #### [facility] of [place] [address] Cream Ripener: Eddie Kwong MD ALT [Catalytic activity/Vol] 55 U/L High 9-46 [facility] Comment on above: Performed By: #### 1 0231, 7600 #### [facility] of [place] [address] Cream Ripener: Eddie Kwong MD AST [Catalytic activity/Vol] 32 U/L Normal 10-40 [facility] Comment on above: Performed By: #### 1 023, 7600 #### [facility] of [place] [address] Cream Ripener: Eddie Kwong MD Bilirubin [Mass/Vol] 0.7 mg/dL Normal 0.2-1.2 [facility] Comment on above: Performed By: #### 1 023, 7600 #### [facility] of [place] [address] Cream Ripener: Eddie Kwong MD BUN/CREATININE RATIO NOT APPLICABLE Normal 6-22 [facility] Comment on above: Performed By: #### 1 023, 7600 #### [facility] of [place] [address] Cream Ripener: Eddie Kwong MD Calcium [Mass/Vol] 10.2 mg/dL Normal 8.6-10.3 [facility] Comment on above: Performed By: #### 1 0231, 7600 #### [facility] of [place] [address] Cream Ripener: Eddie Kwong MD Chloride [Moles/Vol] 104 mmol/L Normal 98-110 [facility] Comment on above: Performed By: #### 1 0231, 7600 #### [facility] of [place] [address] Cream Ripener: Eddie Kwong MD CO2 [Moles/Vol] 24 mmol/L Normal 20-32 [facility] Comment on above: Performed By: #### 1 0231, 7600 #### [facility] of [address], [address] [place] [address] Cream Ripener: Eddie Kwong MD Creatinine [Mass/Vol] 0.81 mg/dL Normal 0.60-1.35 [facility] Comment on above: Performed By: #### 1 0231, 7600 #### [facility] [address], [address] [place] [address] Cream Ripener: Eddie Kwong MD eGFR NON-AFR. DJIBOUTIAN 118 mL/min/1.73m2 Normal > OR = 60 [facility] Comment on above: Performed By: #### 1 023, 7600 #### [facility] [place] [address] Cream Ripener: Eddie Kwong MD GFR/1.73 sq M.predicted among blacks MDRD (S/P/Bld) [Vol rate/Area] 137 mL/min/{1.73_m2} Normal > OR = 60 [facility] Comment on above: Performed By: #### 1 023, 7600 #### [facility] [address], [address] [place] [address] Cream Ripener: Eddie Kwong MD Globulin (S) [Mass/Vol] 2.5 g/dL Normal 1.9-3.7 [facility] Comment on above: Performed By: #### 1 023, 7600 #### [facility] [place] [address] Cream Ripener: Eddie Kwong MD Glucose [Mass/Vol] 80 mg/dL Normal 65-99 [facility] Comment on above: Result Comment: Fasting reference interval Performed By: #### 1 0231, 7600 #### [facility] [place] [address] Cream Ripener: Eddie Kwong MD Potassium [Moles/Vol] 4.3 mmol/L Normal 3.5-5.3 [facility] Comment on above: Performed By: #### 1 023, 7600 #### [facility] of [address], [address] [place] [address] Cream Ripener: Eddie Kwong MD Protein [Mass/Vol] 7.5 g/dL Normal 6.1-8.1 [facility] Comment on above: Performed By: #### 1 0231, 7600 #### [facility] of [address], [address] [place] [address] Cream Ripener: Eddie Kwong MD Sodium [Moles/Vol] 139 mmol/L Normal 135-146 [facility] Comment on above: Performed By: #### 1 0231, 7600 #### [facility] of [address], [address] [place] [address] Cream Ripener: Eddie Kwong MD Urea nitrogen [Mass/Vol] 11 mg/dL Normal 7-25 [facility] Comment on above: Performed By: #### 1 0231, 7600 #### [facility] of [address], [address] [place] [address] Cream Ripener: Eddie Kwong MD LIPID PANEL, [facility] 07-0 Cholesterol [Mass/Vol] 216 mg/dL High <200 [facility] Comment on above: Order Comment: FASTI NG:YES FASTING: YES Performed By: #### 1 0231, 7600 #### [facility] of [address], [address] [place] [address] Cream Ripener: Eddie Kwong MD Cholesterol in HDL [Mass/Vol] 60 mg/dL Normal > OR = 40 [facility] Comment on above: Order Comment: FASTI NG:YES FASTING: YES Performed By: #### 1 0231, 7600 #### [facility] of [address], [address] [place] [address] Cream Ripener: Eddie Kwong MD Cholesterol.total/C holesterol in HDL [Mass ratio] 3.6 {ratio} Normal <5.0 [facility] Comment on above: Order Comment: FASTI NG:YES FASTING: YES Performed By: #### 1 0231, 7600 #### [facility] of [place] [address] [address] Cream Ripener: Eddie Kwong MD LDL-CHOLESTEROL Normal [facility] [...] equation in the estimation of LDL-C. Rafal SS et al. ILIANA. 2013;310(09): 1554-6072 (http://education.Mechanology/faq/XYP679) Performed By: #### 1 0231, 7600 #### [facility] [address], [address] [place] [address] Cream Ripener: Eddie Kwong MD NON HDL CHOLESTEROL 156 mg/dL (calc) High <130 [facility] Comment on above: Order Comment: FASTI NG:YES FASTING: YES Result Comment: For patients with diabetes plus 1 major ASCVD risk factor, treating to a non-HDL-C goal of <100 mg/dL (LDL-C of <70 mg/dL) is considered a therapeutic option. Performed By: #### 1 023, 7600 #### [facility] [place] [address] Cream Ripener: Eddie Kwong MD Triglyceride [Mass/Vol] 406 mg/dL High <150 [facility] Comment on above: Order Comment: FASTI NG:YES FASTING: YES Result Comment: If a non-fasting specimen was collected, consider repeat triglyceride testing on a fasting specimen if clinically indicated. Danyel et al. J. of Clin. Lipidol. 2015;9:129-169. Performed By: #### 1 0231, 7600 #### [facility] [address], [address] [place] [address] Cream Ripener: Eddie Kwong MD Covid-19 PCR (CVDTBH)on SARS-CoV-2 (COVID-19) RNA ISABEL+probe Ql (Unsp spec) Not detected Normal NOT DETECTED [facility] Comment on above: Result Comment: This test is not yet approved or cleared by the [place] FDA. When there are no FDA-approved or cleared tests available, and other criteria are met, FDA can make tests available under an emergency access mechanism called an Emergency Use Authorization (EUA). The EUA for this test is supported by the Link Trainer Operator of Health and Human Service's (HHS's) declaration [...] consistent with SARS-CoV-2. Performed By: #### C VDAGS, CVDTB #### [facility] [address] [place] [address] Phoebe Woo SYMPTOMATIC COVID-19 ANTIGEN on 12-17-2020 EUA Statement SEE BELOW Normal [facility] Comment on above: Result Comment: This [...] is revoked sooner. Performed By: #### C VDAGS, CVDTB #### [facility] [address] [place] [address] Phoebe Woo SARS-CoV-2 (COVID-19) RNA ISABEL+probe Ql (Unsp spec) Negative Normal NEGATIVE [facility] Comment on above: Performed By: #### C VDCARYN CVDTB #### [facility] [address] [place] [id number] Phoebe Woo XR chest 2V*on 12-17-2020 XR chest 2V* [facility] [place] [address] [place] [address] XRay Report Signed Patient: Moy Bledsoe MR#: [id number] : 1990 Acct:[id number] Age/Sex: 30 / M ADM Date: 12/17/20 Loc: XDUCLY Room: Type: [facility] Attending Dr: Madonna MARTINO Ordering Provider: MADONNA [...] Amna Cazares M.D.12/17/2020 10:48 AM Dictation Location: [place] [address] Transcribed By: [facility] 12/17/20 1048 Dictated By: Amna Cazares MD 12/17/20 1047 Signed By: 12/17/20 1048 [facility] Vital Signs Date Time Vital Sign Value Performing Clinician Catalina bernal 08-08-2023 08:12-0500 Body height 190.5 cm Tracy Jackson APRN-ROBOTYPE OPERATOR Work Phone: [employer] 08-08-2023 08:12-0500 Body mass index (BMI) [Ratio] 39.55 kg/m2 Tracy Jackson CLOUD ENGAGEMENT PARTNER-ROBOTYPE OPERATOR Work Phone: [employer] 08-08-2023 08:12-0500 Body temperature 98.2 [degF] Tracy Jackson APRN-ROBOTYPE OPERATOR Work Phone: [employer] 08-08-2023 08:12-0500 Body weight 143.52 kg Tracy Jackson CLOUD ENGAGEMENT PARTNER-ROBOTYPE OPERATOR Work Phone: [employer] 08-08-2023 08:12-0500 Diastolic blood pressure 60 mm[Hg] Tracy Jackson CLOUD ENGAGEMENT PARTNER-ROBOTYPE OPERATOR Work Phone: [facility] 08-08-2023 08:12-0500 Heart rate 91 /min Tracy Jackson CLOUD ENGAGEMENT PARTNER-ROBOTYPE OPERATOR Work Phone: [facility] 08-08-2023 08:12-0500 SaO2% (BldA) [Mass fraction] 96 % Tracy Jackson CLOUD ENGAGEMENT PARTNER-ROBOTYPE OPERATOR Work Phone: [facility] 08-08-2023 08:12-0500 Systolic blood pressure 110 mm[Hg] Tracy Jackson CLOUD ENGAGEMENT PARTNER-ROBOTYPE OPERATOR [facility] En[facility]ters Encounter Date Encounter Type Care Provider Facility Start: 07-25-2024 End: 07-25-2024 Refill Leonides Smalls Furlong DO Work Phone: [facility] Comment on above: Morbid obesity due t o excess calories (CMS-HCC) (Primary Dx) Start: 06-30-2024 End: 07-01-2024 Refill Leonides G Furlong DO Work Phone: [facility] Comment on above: Anxiety Start: 05-05-2024 End: 05-05-2024 Refill Desmond Alas CLOUD ENGAGEMENT PARTNER-PROFESSOR OF ENGLISH Work Phone[facility] Comment on above: COVID-19 Start: 04-16-2024 End: 04-16-2024 Office outpatient visit 15 minutes Desmond Alas CLOUD ENGAGEMENT PARTNER-PROFESSOR OF ENGLISH [facility] Comment on above: COVID-19 (Primary Dx ); Chest wall pain Start: 04-16-2024 End: 04-17-2024 Refill Leonides Andrea DO Work Phone: [facility] Start: 02-04-2024 End: 02-04-2024 ambulatory [facility] Start: 12-24-2023 End: 12-24-2023 ambulatory [facility] Start: 12-24-2023 Encounter for candido l adult medical examination without abnormal findings [facility] Start: 12-05-2023 End: 12-05-2023 ambulatory DOMINICK Ferreira [facility] Start: 08-15-2023 Refill Tracy Jackson CLOUD ENGAGEMENT PARTNER-ROBOTYPE OPERATOR Work Phone: [facility] Start: 08-08-2023 End: 08-08-2023 Office outpatient visit 25 minutes Tracy Jackson CLOUD ENGAGEMENT PARTNER-ROBOTYPE OPERATOR Work Phone: [facility] Comment on above: Obesity (BMI 30-39.9 ) (Primary Dx); Generalized anxiety disorder; Essential (primary) hypertension; Loss of libido Start: 08-08-2023 End: 08-08-2023 ambulatory TRACY FOX [facility] Start: 07-31-2023 Telephone encounter Leonides rogel DO [facility] Start: 07-22-2023 Refill Tracy Jackson CLOUD ENGAGEMENT PARTNER-ROBOTYPE OPERATOR Work Phone: [facility] Start: 07-19-2023 Refill Leonides Bravo ng DO [facility] Start: 07-11-2023 Refill Abiola Nikki PLANT QUALITY MANAGER [facility] Start: 06-20-2023 Refill Tracy Jackson CLOUD ENGAGEMENT PARTNER-ROBOTYPE OPERATOR Work Phone: [facility] Start: 12-17-2020 End: 12-17-2020 ambulatory MADONNA VALENZUELA Facility:H1 Procedures Date Procedure Procedure Detail Performing Clinician Start: 02-04-2024 Follow-up visit Follow-up LEONIDES Smalls ELMO Start: 02-04-2024 Adult depression screening assessment Desmond Alas CLOUD ENGAGEMENT PARTNER-PROFESSOR OF ENGLISH Work Phone: Start: 08-08-2023 Adult depression screening assessment Tracy Jackson CLOUD ENGAGEMENT PARTNER-ROBOTYPE OPERATOR Work Phone: Start: 03-04-2023 Adult depression screening assessment Tracy Jackson CLOUD ENGAGEMENT PARTNER-ROBOTYPE OPERATOR Work Phone: Plan of Treatment Date Care Activity Detail Author Start: 04-16-2025 Adult BMI Follow Up Plan Adult BMI Follow Up Plan [facility] Start: 04-16-2025 Tobacco Screening Tobacco Screening [facility] Start: 02-03-2025 Adult BMI Screening Adult BMI Screen ing [facility] Start: 02-03-2025 Depression Screening Depression Scre ening [facility] Start: 08-08-2024 Adult BMI Follow Up Plan Adult BMI Follow Up Plan [facility] Start: 08-08-2024 Adult BMI Screening Adult BMI Screen ing [facility] Start: 08-08-2024 Depression Screening Depression Scre ening [facility] Start: 08-08-2024 Tobacco Screening Tobacco Screening [facility] Start: 03-04-2024 Adult BMI Screening Adult BMI Screen ing [facility] Start: 03-04-2024 Depression Screening Depression Scre ening [facility] Start: 03-04-2024 Tobacco Screening Tobacco Screening [facility] Start: 02-16-2024 COVID-19 Vaccine ( season) COVID-19 Vaccine () [facility] Start: 02-16-2024 Influenza vaccination Influenza Vacc ine [facility] Start: 02-15-2023 COVID-19 Vaccine ( season) COVID-19 Vaccine (2022-24 season) [facility] Start: 02-15-2023 Influenza vaccination Influenza Vacc ine [facility] Start: 2008 Adult BMI Follow Up Plan Adult BMI Follow Up Plan [facility] Start: 2001 DTaP,Tdap and Td Vaccines (6 - Tdap) DTaP,Tdap and Td Vaccines (6 - Tdap) [facility] Immunizations Immunization Date Immunization Notes Care Provider Fa cili 04-24-2023 influenza, injectabl e, quadrivalent, preservative free Tracy Jackson CLOUD ENGAGEMENT PARTNER-ROBOTYPE OPERATOR Work Phone: [facility] 04-24-2023 influenza virus vaccine, unspecified formulation Desmond Alas CLOUD ENGAGEMENT PARTNER-PROFESSOR OF ENGLISH Work Phone: [facility] 04-10-2022 Covid-19, Mrna, Lnp- s, Bivalent, Pf, 50mcg/0.5ml or 25mcg/0.25ml Tracy Jackson CLOUD ENGAGEMENT PARTNER-ROBOTYPE OPERATOR Work Phone: [facility] 04-10-2022 influenza, injectabl e, quadrivalent, contains preservative Tracy eRnetta CLOUD ENGAGEMENT PARTNER-ROBOTYPE OPERATOR Work Phone: [facility] 04-10-2022 influenza virus vaccine, unspecified formulation Tracy Jackson CLOUD ENGAGEMENT PARTNER-ROBOTYPE OPERATOR Work Phone: [facility] 04-29-2021 influenza, seasonal, injectable Tracy Jackson CLOUD ENGAGEMENT PARTNER-ROBOTYPE OPERATOR Work Phone: [facility] 10-12-2020 COVID-19, mRNA, LNP- S, PF, 100mcg/0.5mL Dose Tracy Jackson CLOUD ENGAGEMENT PARTNER-ROBOTYPE OPERATOR Work Phone: [facility] 09-28-2020 COVID-19, mRNA, LNP- S, PF, 100mcg/0.5mL Dose Tracy Jackson CLOUD ENGAGEMENT PARTNER-ROBOTYPE OPERATOR Work Phone: [facility] 09-14-2020 COVID-19, mRNA, LNP- S, PF, 100mcg/0.5mL Dose rTacy Jackson CLOUD ENGAGEMENT PARTNER-ROBOTYPE OPERATOR Work Phone: [facility] 04-20-2020 influenza, injectabl e, quadrivalent, contains preservative Tracy Jackson CLOUD ENGAGEMENT PARTNER-ROBOTYPE OPERATOR Work Phone: [facility] 03-19-2019 Influenza, injectabl e, Madin Asmita Canine Kidney, preservative free, quadrivalent Tracy Jackson CLOUD ENGAGEMENT PARTNER-ROBOTYPE OPERATOR Work Phone: [facility] 06-18-2000 hepatitis B vaccine, pediatric or pediatric/adolescent dosage Tracy Jackson CLOUD ENGAGEMENT PARTNER-ROBOTYPE OPERATOR Work Phone: [facility] 12-18-1999 hepatitis B vaccine, pediatric or pediatric/adolescent dosage Tracy Jackson CLOUD ENGAGEMENT PARTNER-ROBOTYPE OPERATOR Work Phone: [facility] 11-17-1999 hepatitis B vaccine, pediatric or pediatric/adolescent dosage Tracy Jackson CLOUD ENGAGEMENT PARTNER-ROBOTYPE OPERATOR Work Phone: [facility] 09-23-1995 diphtheria, tetanus toxoids and acellular pertussis vaccine, unspecified formulation Tracy Jackson CLOUD ENGAGEMENT PARTNER-ROBOTYPE OPERATOR Work Phone: [facility] 09-23-1995 measles, mumps and rubella virus vaccine Tracy Jackson CLOUD ENGAGEMENT PARTNER-ROBOTYPE OPERATOR Work Phone: [facility] 09-23-1995 trivalent poliovirus vaccine, live, oral Tracy Jackson CLOUD ENGAGEMENT PARTNER-ROBOTYPE OPERATOR Work Phone: [facility] 02-29-1992 diphtheria, tetanus toxoids and pertussis vaccine Tracy Jackson CLOUD ENGAGEMENT PARTNER-ROBOTYPE OPERATOR Work Phone: [facility] 02-29-1992 trivalent poliovirus vaccine, live, oral Tracy Jackson CLOUD ENGAGEMENT PARTNER-ROBOTYPE OPERATOR Work Phone: [facility] 12-14-1991 haemophilus influenz ae type b vaccine, conjugate unspecified formulation Tracy Jackson CLOUD ENGAGEMENT PARTNER-ROBOTYPE OPERATOR Work Phone: [facility] 12-14-1991 measles, mumps and rubella virus vaccine Tracy Jackson CLOUD ENGAGEMENT PARTNER-ROBOTYPE OPERATOR Work Phone: [facility] 03-02-1991 diphtheria, tetanus toxoids and pertussis vaccine Tracy Jackson CLOUD ENGAGEMENT PARTNER-ROBOTYPE OPERATOR Work Phone: [facility] 03-02-1991 haemophilus influenz ae type b vaccine, conjugate unspecified formulation Tracy Jackson CLOUD ENGAGEMENT PARTNER-ROBOTYPE OPERATOR Work Phone: [facility] 1990 diphtheria, tetanus toxoids and pertussis vaccine Tracy Jackson CLOUD ENGAGEMENT PARTNER-ROBOTYPE OPERATOR Work Phone: [facility] 1990 haemophilus influenz ae type b vaccine, conjugate unspecified formulation Tracy Jackson CLOUD ENGAGEMENT PARTNER-ROBOTYPE OPERATOR Work Phone: [facility] 1990 trivalent poliovirus vaccine, live, oral Tracy Jackson CLOUD ENGAGEMENT PARTNER-ROBOTYPE OPERATOR Work Phone: [facility] 1990 diphtheria, tetanus toxoids and pertussis vaccine Tracy Jackson CLOUD ENGAGEMENT PARTNER-ROBOTYPE OPERATOR Work Phone: [facility] 1990 haemophilus influenz ae type b vaccine, conjugate unspecified formulation Tracy Jackson CLOUD ENGAGEMENT PARTNER-ROBOTYPE OPERATOR Work Phone: [facility] 1990 trivalent poliovirus vaccine, live, oral Tracy Jackson CLOUD ENGAGEMENT PARTNER-ROBOTYPE OPERATOR Work Phone: [facility] Payers Date Payer Category Payer [facility] Managed Care - Other [employer] [id number] 2016 Unknown [employer] OUT OF STATE PPO/TRUST [id number] 2016-Present [phone] [address] [place] [address] [id number] 1990 Unknown [id number] 1990 Unknown [id number] 1990 Unknown [id number] 1990 Unknown [id number] 1990 Unknown [id number] 1990 Unknown [id number] 1959 Unknown [id number] Social History Date Type Detail Facility Start: 08-09-2022 Tobacco smoking status NHIS Ex-smoker [facility] History of tobacco use Current smoker [facility] History of tobacco use Cigarette Smoker P [facility] Start: 08-09-2022 Tobacco use and exposure Smokeless tobacco non-user [facility] Start: 03-04-2023 End: 04-16-2024 Alcohol intake Current drinker of alcohol (finding) [facility] Start: 03-04-2023 End: 12-24-2023 History of Social function [facility] Start: 03-04-2023 End: 12-24-2023 Tobacco use panel [facility] Adolescent depressio n screening assessment 18 [facility] Start: 08-09-2022 Alcohol Comment occasionally [facility] Start: 1990 Sex Assigned At Not on file [facility] Start: 1990 Sex Assigned At Male [facility] Start: 08-05-2023 Gender identity Identifies as male gender (finding) [facility] Has the Aving[employer], NOZA s, oil, or water company threatened to shut off services in your home in past 12Mo No [facility] Do you belong to any clubs or organizations such as pentecostalism groups, unions, fraternal or athletic groups, or school groups? Yes [facility] Are you now , , , , never or living with a partner? [facility] How often to you hav e a drink containing alcohol? Monthly or less [facility] How many standard dr inks containing alcohol do you have on a typical day? 1 or 2 [facility] How often do you hav e 6 or more drinks on 1 occasion? Never [facility] Do you feel stress - tense, restless, nervous, or anxious, or unable to sleep at night because your mind is troubled all the time - these days [OSQ] Very much [facility] Start: 01-20-2015 Sex Male (finding) [facility] Clinical Notes 07-31-2023 to 07-25-2024 Telephone Encounter - Leonides Andrea DO - 07/25/2024 6:43 AM ESTTelephone Encounter - Leonides Andrea DO - 07/25/2024 6:43 AM HAZEL Dennis - 04/16/2024 4:20 PM EDT Note Date & Type Note Facility 07-25-2024 Miscellaneous Notes Formattin g of this note might be different from the original. He needs a weight recheck appointment. Make it a wellness if he is due for that documented in this encounter [facility] 07-25-2024 Telephone encount er Note He needs a weight recheck appointment. Make it a wellness if he is due for that [facility] 04-16-2024 History of Presen t illness Narrative Images from the original note were not included. [address] [place] [address] SUBJECTIVE: Video Visit via Real-time Synchronous Audiovisual Provider Location: [facility] [address] [place] [address] Patient Location: Patient's home Video Visit Consent [...] that there are some limitations compared to [id number] evaluations. The patient consented to the presence [...] EXTRACTION Past Medical History: Diagnosis Date A-fib ([facility] Anxiety Depression First degree AV block 07/22/2011 Hyperlipidemia Hypertension Left ventricular hypertrophy 12/28/2016 Last Assessment & Plan: Mild left ventricular hypertrophy noted on echocardiogram performed February 2016 but the patient has a strong family history of hypertrophic cardiomyopathy in in at least 3 family members. Cardiac MRI performed at [facility] in 2016 did not show any features suggestive of [...] medications, tests, or procedures Follow-up: Next scheduled Desmond Alas APRN-PROFESSOR OF ENGLISH 04/16/24 1647 [facility] History of Presen t illness Narrative Subjective Patient ID: Moy Bledsoe is a 33 y.o. male. 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 MALINDA Tsai 08/08/231123 documented in this encounter [facility] 07-31-2023 Miscellaneous Notes Formattin g of this note might be different from the original. ----- Message from MALINDA Tsai sent at 07/22/2023 11:00 AM EST ----- Regarding: apt is due I am refilling his meds but he is due for an apt Attempted contact alek lucas documented in this encounter [facility] 07-31-2023 Telephone encount er Note ----- Message from MALINDA Tsai sent at 07/22/2023 11:00 AM EST ----- Regarding: apt is due I am refilling his meds but he is due for an apt [facility] 07-31-2023 Telephone encount er Note Attempted contact celiaanna marvin lucas [facility] System Evaluation note Diagnosis Obesity (BMI 30-39.9)- Primary Generalized anxiety disorder Essential (primary) hypertension Unspecified essential hypertension Loss of libido Decreased libido [facility] Diagnosis COVID-19- Primary Chest wall pain Painful respiration documented in this encounter [facility]* Diagnosis COVID-19 documented in this encounter [facility]* Diagnosis Anxiety Anxiety state, unspecified documented in this encounter [facility]* Diagnosis Morbid obesity due to excess calories (CMS-HCC)- Primary [facility] System[facility]ructionsNot on filedocumented in this [facility] System[facility] on filedocumented in this encounter [facility] System[facility]ructionsNot on filedocumented in this encounter [facility]ructionsNot on filedocumented in this encounter [facility]* Attachments The following attachments cannot be sent through Care Everywhere. * COVID-19 overview (Romanian) [facility] System[facility]ructionsNot on file [facility] Summary Purpose Family History No Family [...] and content) DATE CREATED AUTHOR 12/24/2020 [facility] DATE CREATED AUTHOR AUTHOR'S ORGANIZ ATION 07/09/2021 [facility] DATE CREATED AUTHOR AUTHOR'S ORGANIZ ATION 12/20/2021 [...] Med Refill 04/16/2024 Reason Comments Med Refill Reason Comments Med Refill Care Teams (unrecognized sec tion and content) Blind Escort Relationship Specialty Start Date End Date Leonides Andrea DO [address] [place] [address] PCP - General Family Medicine 04/16/22 Blind Escort Relationship Specialty Start Date End Date Leonides Andrea DO [address] [place] [address] PCP - General Family Medicine 04/16/22 Blind Escort Relationship Specialty Start Date End Date Leonides Andrea DO [address] [place] [address] PCP - General Family Medicine 04/16/22 Blind Escort Relationship Specialty Start Date End Date Renetta Vicky, CLOUD ENGAGEMENT PARTNER-[facility] [address] [place] [address] PCP - General Internal Medicine 08/05/23 Blind Escort Relationship Specialty Start Date End Date Renetta Vicky, CLOUD ENGAGEMENT PARTNER-[facility] [address] [place] [address] PCP - General Internal Medicine 08/05/23 Blind Escort Relationship Specialty Start Date End Date Leonides Andrea DO [address] [address] PCP - General Family Medicine 12/05/23 Blind Escort Relationship Specialty Start Date End Date Leonides Andrea DO [address] [address] PCP - General Family Medicine 12/05/23 Blind Escort Relationship Specialty Start Date End Date Leonides Andrea DO [address] [place] [address] PCP - General Family Medicine 12/05/23 Blind Escort Relationship Specialty Start Date End Date Leonides Andrea DO [address] [place] [address] PCP - General Family Medicine 12/05/23 FOR [...] BE BASED ON THE PRIMARY CLINICAL RECORDS. [facility]. provides no warranty or guarantee of the accuracy or completeness of information in this document.
[2024-07-26] MEDS: 0.9 % SODIUM CHLORIDE 1,000 ML 1000 ML IV ×2 (07:32→08:50)
[2024-07-26] MEDS: ONDANSETRON PF 4 MG/2 ML VIAL IV (07:37)
[2024-07-26 07:44] LABS: Hematocrit 51.3 % (42.0-54.0); Hemoglobin 18.2 g/dL (14.0-18.0); Mean Corpuscular HGB Conc 35.5 g/dL (29.9-35.2); Mean Corpuscular Hemoglobin 29.1 pg (25.9-34.0); Mean Corpuscular Volume 82.1 fL (80.0-94.0); Mean Platelet Volume 10.4 fL (9.5-13.5); Platelet Count 243 10^3/uL (150-450); Red Blood Count 6.25 10^6/uL (4.70-6.10); White Blood Count 9.2 10^3/uL (4.0-11.0)
[2024-07-26 07:56] LABS: Influenza Virus A Antigen Negative; Influenza Virus B Antigen Negative; Internal Control Within Normal Limits; Respiratory Syncytial Virus Not Detected (NOT DETECTE); SARS-CoV-2 Ag NEGATIVE (NEGATIVE)
[2024-07-26 08:02] LABS: Alanine Aminotransferase 50 U/L (16-63); Albumin Globulin Ratio 1.4; Albumin Level 4.8 g/dL (3.4-5.0); Alkaline Phosphatase 74 U/L (46-116); Anion Gap 24.6; Aspartate Amino Transferase 27 U/L (15-37); BUN Creatinine Ratio 10.1; Bilirubin Total 1.5 mg/dL (0.2-1.0); Calcium 10.1 mg/dL (8.5-10.1); Carbon Dioxide 18.5 mmol/L (21.0-32.0); Chloride 101 mmol/L (98-107); Estimated GFR (African America >60 (>=60 mL/min/1.73m^2); Estimated GFR (Non-African Ame 51 (>=60 mL/min/1.73m^2); Globulin 3.4 g/dL; Glucose 162 mg/dL (74-106); Magnesium 1.3 mg/dL (1.8-2.4); Potassium 4.1 mmol/L (3.5-5.1); Sodium 140 mmol/L (136-145); Total Protein 8.2 g/dL (6.4-8.2); Troponin I High Sensitivity 5.9 pg/mL (4.0-76.1)
--- NOTE | 2024-07-26 08:07 | ECG_ITS ---
[facility] Test Date: 2024-07-26 Pat Name: SID VALENTINE Department: Room: - Gender: Male Manager Machine: : 1990 Requested By: ANTONIETA BORREGO Order Number: [id number] Reading MD: HERBERT AGUIRRE Measurements Intervals [place] Rate: 118 P: 104 MT: 214 QRS: 50 QRSD: 102 T: -30 QT: 328 QTc: 398 Interpretive Statements 1120 Sinus tachycardia 2231 First degree AV block 3114 Cannot rule out anterior myocardial infarction, age undetermined 9150 abnormal ECG No previous ECG available for comparison Electronically Signed On 07-27-2024 6:57:17 EST by HERBERT AGUIRRE
[2024-07-26 08:08] LABS: Band Neutrophils Absolute 0.6 10^3/uL (0.0-0.3); Basophils Abs Manual 0.09 10^3/uL (0.00-0.10); Lymphocytes Absolute Manual 0.64 10^3/uL (1.20-3.80)
[2024-07-26] MEDS: MAGNESIUM SULFATE/D5W 1 GM/100 ML PREMIX IV (08:15)
[2024-07-26 08:19] VITALS: PULSE 120
[2024-07-26 08:20] VITALS: PULSE 116
[2024-07-26 08:21] VITALS: BP 126/80; PULSE 116
[2024-07-26 09:23] LABS: Anion Gap 17.1; BUN Creatinine Ratio 9.9; Calcium 8.9 mg/dL (8.5-10.1); Carbon Dioxide 25.3 mmol/L (21.0-32.0); Chloride 105 mmol/L (98-107); Estimated GFR (African America >60 (>=60 mL/min/1.73m^2); Estimated GFR (Non-African Ame 53 (>=60 mL/min/1.73m^2); Glucose 126 mg/dL (74-106); Potassium 4.4 mmol/L (3.5-5.1); Sodium 143 mmol/L (136-145)
--- NOTE | 2024-07-26 09:58 | ED.GENADUL1 ---
HPI HPI - General Adult General Chief complaint: Nausea/Vomiting/Diarrhea Stated complaint: NAUSEA, VOMITING, DIARRHEA Time Seen by Provider: 07/26/24 07:18 Source: patient Mode of arrival: walk-in History of Present Illness HPI narrative: The patient is a 33-year-old male coming to the ER with the symptoms that started last night, mentioned that he started having vomiting initially then he started having diarrhea after that, patient has not been exposed to anybody who had the symptoms in his household but he said that recently has been exposed to multiple people some of them could have had some viral infection The patient is complaining of chills some coughing and difficulty breathing, no chest pain, he did mention that sometime he saw some blood in his vomitus when retching The patient denies any other concerns Related Data Home Medications ?Medication ?Instructions ?Recorded ?Confirmed alprazolam 0.5 mg tablet mg 02/01/24 fluvoxamine 50 mg tablet mg 02/01/24 metoprolol tartrate 50 mg tablet mg 02/01/24 semaglutide (weight loss) 2.4 mg subcut 02/01/24 mg/0.75 mL subcutaneous pen injector (Wegovy) Previous Rx's ?Medication ?Instructions ?Recorded ondansetron 4 mg disintegrating 4 mg PO Q6H PRN nausea and 02/01/24 tablet vomiting #20 tabs ciprofloxacin HCl 500 mg tablet 500 mg PO BID 5 days #10 tabs 06/15/24 (Cipro) famotidine 20 mg tablet (Pepcid) 20 mg PO BID #10 tabs 07/26/24 ondansetron 4 mg disintegrating 4 mg PO Q8H PRN nausea and 07/26/24 tablet vomiting 3 days #10 tabs Allergies Allergy/AdvReac Type Severity Reaction Status Date / Time amoxicillin Allergy Unknown Unknown Verified 06/15/24 09:42 cefaclor (From Ceclor) Allergy Unknown Unknown Verified 06/15/24 09:42 Sulfa (Sulfonamide Allergy Unknown Unknown Verified 06/15/24 09:42 Antibiotics) sulfamethoxazole (From Allergy Unknown Unknown Verified 06/15/24 09:42 Bactrim) trimethoprim (From Bactrim) Allergy Unknown Unknown Verified 06/15/24 09:42 Opioid HPI Opioid Management Most Recent Opioid Data: No Data to Display Review of Systems ROS Status of ROS 10 or more systems reviewed and unremarkable except as noted in history and below PFSH PFS Social History Little interest or pleasure in doing things: not at all Feeling down, depressed, or hopeless: not at all Exam Narrative Exam Narrative: Nurses notes and vital signs reviewed and patient is not hypoxic. General: Well-appearing and in no apparent distress. Skin: Warm, dry, no pallor noted. No rash. Head: Normocephalic, atraumatic. Neck: Supple, non-tender. Eye: Pupils are equal, round and EOMI. No scleral icterus. Ears, Nose, Mouth, and Throat: TM are clear, no nasal mucosal hypertrophy. Oral mucosa is moist, no posterior oropharynx erythema, uvula is mid-line Cardiovascular: Regular Rate and Rhythm without murmur, gallop or rub. Respiratory: No accessory muscle use or respiratory distress. Lungs are clear to auscultation, no wheezing, rales or rhonchi Chest Wall: no tenderness Back: No midline thoracic or lumbar vertebral tenderness. No CVA tenderness Musculoskeletal: normal ROM, no calf or popliteal tenderness, no lower extremity edema/swelling GI: Abdomen is soft, non-distended. Normal bowel sounds. No masses appreciated. No tenderness to palpation. No rebound, guarding, or rigidity noted. Neurological: A&O x4. No cranial nerve dysfunction observed. No truncal ataxia. Moves all extremities. Sensation intact. Psychiatric: Cooperative and interactive. Normal mood and affect. Constitutional Vital Signs, click to edit/add: Last Vital Signs Temp 97.8 F 07/26/24 07:16 Pulse 116 H 07/26/24 08:21 Resp 14 07/26/24 08:21 BP 126/80 07/26/24 08:21 Pulse Ox 96 07/26/24 07:16 O2 Del Method Room Air 07/26/24 07:16 Course Vital Signs Vital signs: Vital Signs Temperature 97.8 F 07/26/24 07:16 Pulse Rate 127 H 07/26/24 07:16 Respiratory Rate 20 07/26/24 07:16 Blood Pressure 124/104 H 07/26/24 07:16 Pulse Oximetry 96 07/26/24 07:16 Oxygen Delivery Method Room Air 07/26/24 07:16 Temperature 97.8 F 07/26/24 07:16 Pulse Rate 116 H 07/26/24 08:21 Respiratory Rate 14 07/26/24 08:21 Blood Pressure 126/80 07/26/24 08:21 Pulse Oximetry 96 07/26/24 07:16 Oxygen Delivery Method Room Air 07/26/24 07:16 Medical Decision Making MDM Narrative Medical decision making narrative: The patient presented to us with a viral illness symptoms of coughing diarrhea nausea and vomiting, his presentation is highly suspected to be secondary to viral syndrome he was tested for COVID flu and RSV and they came negative This x-ray showed no acute pathology EKG showing sinus tachycardia with a heart rate of [address] elevation or depression The patient troponin was negative Chemistry shows acute kidney injury and initially some metabolic acidosis that was corrected after 2 L of IV fluid Patient was provided also with Pepcid and Zofran in the ER after which she was feeling better Patient provided with magnesium IV to replace the hypomagnesemia and he was provided with a dietary sources of magnesium Patient to follow-up with his doctor within few days for further evaluation and management he is also to come back to the ER in case of nausea and vomiting that continues I did explain to him that the risk of dehydration with that The patient is to follow up with primary care physician in next 2-3 days or to return to the emergency department should any of the signs or symptoms worsen or new symptoms develop. The patient agrees with the following Diagnosis and Treatment plan and the patient will be discharged home. Lab Data Labs: Lab Results 07/26/24 07/26/24 07/26/24 Range/Units 07:23 07:35 09:11 WBC 9.2 (4.0-11.0) 10^3/uL RBC 6.25 H (4.70-6.10) 10^6/uL Hgb 18.2 H (14.0-18.0) g/dL Hct 51.3 (42.0-54.0) % MCV 82.1 (80.0-94.0) fL MCH 29.1 (25.9-34.0) pg MCHC 35.5 H (29.9-35.2) g/dL RDW 13.0 (11.0-15.0) % Plt Count 243 (150-450) 10^3/uL MPV 10.4 (9.5-13.5) fL Seg Neuts % (Manual) 74.0 (43.0-75.0) Band Neutrophils % 6.0 H (0-5) % Lymphocytes % (Manual) 7.0 L (20.5-60.0) % Monocytes % (Manual) 12.0 (1.7-12.0) % Eosinophils % (Manual) 0.0 L (0.9-7.0) % Basophils % (Manual) 1.0 (0.2-2.0) % Neutrophils # (Manual) 6.80 H (1.4-6.5) 10^3/uL Band Neutrophils # 0.6 H (0.0-0.3) 10^3/uL Lymphocytes # (Manual) 0.64 L (1.20-3.80) 10^3/uL Monocytes # (Manual) 1.10 H (0.30-0.80) 10^3/uL Eosinophils # (Manual) 0.00 (0.00-0.70) 10^3/uL Basophils # (Manual) 0.09 (0.00-0.10) 10^3/uL Sodium 140 143 (136-145) mmol/L Potassium 4.1 4.4 (3.5-5.1) mmol/L Chloride 101 105 (98-107) mmol/L Carbon Dioxide 18.5 L 25.3 (21.0-32.0) mmol/L Anion Gap 24.6 17.1 BUN 16.0 15.0 (7.0-18.0) mg/dL Creatinine 1.58 H 1.52 H (0.70-1.30) mg/dL Est GFR ( Amer) >60 >60 (>=60 mL/min/1.73m^2) Est GFR (Non-Af Amer) 51 L 53 L (>=60 mL/min/1.73m^2) BUN/Creatinine Ratio 10.1 9.9 Glucose 162 H 126 H (74-106) mg/dL Calcium 10.1 8.9 (8.5-10.1) mg/dL Magnesium 1.3 L (1.8-2.4) mg/dL Total Bilirubin 1.5 H (0.2-1.0) mg/dL AST 27 (15-37) U/L ALT 50 (16-63) U/L Alkaline Phosphatase 74 (46-116) U/L Troponin I High Sens 5.9 (4.0-76.1) pg/mL Total Protein 8.2 (6.4-8.2) g/dL Albumin 4.8 (3.4-5.0) g/dL Globulin 3.4 g/dL Albumin/Globulin Ratio 1.4 Lipase 32.0 (16.0-77.0) U/L Influenza Type A Ag Negative Influenza Type B Ag Negative RSV Antigen Not detected (NOT DETECTE) SARS-CoV-2 Ag (CV2AG) Negative (NEGATIVE) Discharge Plan Discharge Chief Complaint: Nausea/Vomiting/Diarrhea Clinical Impression: Gastroenteritis, Acute viral syndrome, JENNY (acute kidney injury), Hypomagnesemia Patient Disposition: Home, Self-Care Time of Disposition Decision: 10:01 Condition: Good Prescriptions / Home Meds: New ondansetron 4 mg tablet,disintegrating 4 mg PO Q8H PRN (Reason: nausea and vomiting) 3 Days Qty: 10 0RF famotidine [Pepcid] 20 mg tablet 20 mg PO BID Qty: 10 0RF No Action alprazolam 0.5 mg tablet metoprolol tartrate 50 mg tablet fluvoxamine 50 mg tablet Wegovy 2.4 mg/0.75 mL pen injector SUBCUT ondansetron 4 mg tablet,disintegrating 4 mg PO Q6H PRN (Reason: nausea and vomiting) Qty: 20 0RF ciprofloxacin HCl [Cipro] 500 mg tablet 500 mg PO BID 5 Days Qty: 10 0RF Print Language: Indian Instructions: Acute Kidney Injury (DC), Acute Nausea and Vomiting (DC), Hypomagnesemia (ED) Referrals: ANTONIETA BORREGO [Primary Care Provider] - 1 week
[2024-07-26] MEDS: FAMOTIDINE/PF 20 MG/2 ML VIAL IV (10:09)
== END 2024-07-26 10:16 | disposition home or self-care (01) ==
PROVIDERS: Emergency Provider Emergency Medicine; PCP Family Medicine
DX: K52.9 Noninfective gastroenteritis and colitis, unspecified (principal); B34.9 Viral infection, unspecified; N17.9 Acute kidney failure, unspecified; E83.42 Hypomagnesemia
CPT/HCPCS: 36415; 71045; 80048; 80053; 83690; 83735; 84484; 85007; 85027; 87420; 87804; 87811; 93005; 96361; 96365; 96375; 99285; J2405; J3475; J3490

== ENCOUNTER 2024-07-31 11:19 | Emergency (ER) | payer BC, SELFPAY ==
[2024-07-31 11:28] VITALS: BP 135/92; PULSE 82; TEMP 36.5; O2SAT 96; BMI 38.1
--- OUTSIDE RECORDS SUMMARY | 2024-07-31 11:36 | XMS_ITS | CCD ---
Author Organization [facility] Inform ion Partnership [facility] Care Team Providers Care [employer] Name Role Phone MADONNA VALENZUELA Consulting Unavailable MADONNA VALENZUELA Attending Unavailable MADONNA VALENZUELA Admitting Unavailable Furlong DOLeonides Primary Care Provider [phone] Renetta SERVICE ORDER TAKER-BULK FLUIDS HANDLERTracy Primary Care Provider Furlong DO, Leonides Smalls Primary Care Provider DOMINICK LIPSCOMB Attending Unavailable TRACY JACKSON Referring [...] Allergy Type Date of Onset Reaction(s) Facility (17 sources) Amoxicillin; Translations: [AMOXICILLIN (BULK)] Drug Allergy 06-30-19 16 [facility] Work Phone: (17 sources) Cefaclor; Translations: [CEFACLOR] Drug Allergy 06-30-19 16 Hives, [facility] (17 sources) Sulfamethoxazole / Trimethoprim; Translations: [SULFAMETHOXAZOLE-TR IMETHOPRIM] Drug Allergy 07-12-19 12 Hives, Other (See Comments), [facility] (17 sources) Sulfonamides (Antibiotic); Translations: [SULFA (SULFONAMIDE ANTIBIOTICS)] Propensity to adverse reactions to drug 01-11-20 17 Vomiting [facility] (11 sources) Sulfacetamide / Sulfur; Translations: [SULFACETAMIDE [id number]] Drug Allergy 11-25-19 20 Other (See Comments) [facility] Medications Current Medications Medication Drug Class(es) Dates Sig (Normalized) Sig (Original) [id number] 200 actuat albuterol 0.09 mg/actuat metered dose inhaler (7 sources) beta2-Adrenergic Agonist Start: 05-05-2024 take 2 [...] 05/05/2024 Discontinued ALPRAZolam 0.5 mg oral tablet (18 sources) Benzodiazepine Start: 01-23-2024 End: 07-01-2024 ALPRAZolam (XANAX) 0.5 mg tablet Indications: Anxiety TAKE 1 TABLET DAILY NEEDED FOR ANXIETY 30 tablet 07/01/2024 Active Start: 10-13-2023 take 1 tablet by [facility] once daily as needed for anxiety ALPRAZolam (XANAX) 0.5 mg tablet Indications: Anxiety Take 1 tablet (0.5 mg total) by mouth daily as needed for anxiety. 30 tablet 10/13/2023 Active Start: 03-04-2023 End: 10-10-2023 take 1 tablet by mouth once daily as needed for anxiety ALPRAZolam (XANAX) 0.5 mg tablet Indications: Anxiety Take 1 tablet (0.5 mg total) by mouth daily as needed for anxiety. 30 tablet 03/04/2023 10/10/2023 Discontinued (Reorder) aspirin 81 mg delayed release oral tablet (16 sources) Platelet Aggregation Inhibitor, Nonsteroidal Anti-inflammatory Drug take 1 tablet by mouth in the morning aspirin 81 mg Take 1 tablet (81 mg total) by mouth in the morning. Active benzonatate 100 mg oral capsule (6 sources) Non-narcotic Antitussive Start: take 1 capsule by mouth three times daily as needed for cough benzonatate (TESSALON PERLES) 100 mg capsule Indications: COVID-19 Take 1 capsule (100 mg total) by mouth 3 (three) times a day as needed for cough. 30 capsule 04/16/2024 Active 24 hr buPROPion hydrochloride 150 mg extended release oral tablet (4 sources) Aminoketone Start: take 1 tablet by mouth once daily in the morning buPROPion XL (WELLBUTRIN XL) 150 mg 24 hr tablet Indications: Generalized anxiety disorder Take 1 tablet (150 mg total) by mouth every morning. 90 tablet 1 08/08/2023 Active fluvoxaMINE maleate 50 mg oral tablet (20 sources) Serotonin Reuptake Inhibitor Start: End: fluvoxaMINE (LUVOX) 50 mg tablet Take 1tablet at bedtime daily 90 tablet 1 04/17/2024 Active Start: 07-22-2023 End: 08-15-2023 fluvoxaMINE (LUVOX) 50 mg ta blet Take 1.5 tablets at bedtime daily 45 tablet 1 08/16/2023 Active Start: 04-11-2023 End: 07-19-2023 fluvoxaMINE (LUVOX) 50 mg ta blet Take 1.5 tablets at bedtime daily 45 tablet 1 06/21/2023 07/19/2023 Discontinued (Reorder) ibuprofen 800 mg oral tablet (6 sources) Nonsteroidal Anti-inflammatory Drug Start: 04-16-2024 take 1 tablet by mouth every eight hours as needed for pain ibuprofen (MOTRIN) 800 mg tablet Indications: Chest wall pain Take 1 tablet (800 mg total) by mouth every 8 (eight) hours as needed for pain. 30 tablet 04/16/2024 Active metoprolol tartrate 50 mg oral tablet (20 sources) beta-Adrenergic Yony Start: 01-23-2024 End: 04-16-2024 take 1 tablet by mouth in the morning, then take 1 tablet by mouth at bedtime metoprolol tartrate (LOPRESSOR) 50 mg tablet Take 1 tablet (50 mg total) by mouth in the morning and 1 tablet (50 mg total) before bedtime. 180 tablet 3 04/17/2024 Active Start: 10-21-2023 metoprolol tar trate (LOPRESSOR) 50 mg tablet TAKE 1 TABLET IN THE MORNING AND 1 TABLET BEFORE BEDTIME 180 tablet 3 10/21/2023 Active Start: 05-24-2023 End: 10-21-2023 take 1 tablet by mouth in the morning, then take 1 tablet by mouth at bedtime metoprolol tartrate (LOPRESSOR) 50 mg tablet Take 1 tablet (50 mg total) by mouth in the morning and 1 tablet (50 mg total) before bedtime. 180 tablet 07/22/2023 10/21/2023 Discontinued nirmatrelvir-ritonavir (PAXLOVID) tablets (2 sources) Start: 04-16-2024 End: 04-21-2024 take 3 tablets by mouth in the morning nirmatrelvir-ritonavir (PAXLOVID) tablets Indications: COVID-19 Take 3 tablets by mouth in the morning and 3 tablets before bedtime. Do all this for 5 days. HOLD alprazolam while taking this medication. 30 tablet 04/16/2024 04/21/2024 Active semaglutide, weight loss, (WEGOVY) 2.4 mg/0.75 mL pen injector (18 sources) Start: 07-25-2024 semaglutide, weight loss, (WEGOVY) 2.4 mg/0.75 mL pen injector Indications: Morbid obesity due to excess calories ([facility]) INJECT 0.75 ML (2.4 MG) UNDER THE [...] unspecified] Onset: 10-15-2016 08-09-2022 Chronic Essential hypertension (18 sources) Essential hypertension; Translations: [Essential (primary) hypertension] Onset: 08-09-2022 08-09-2022 Chronic Heart valve disorders (16 sources) Mitral valve prolapse; Translations: [Nonrheumatic mitral (valve) prolapse] Onset: 07-12-2011 08-09-2022 Chronic Other nutritional; endocrine; and metabolic disorders (18 sources) Morbid obesity; Translations: [Morbid (severe) obesity [...] Date Documented Date Episodic/Chronic Acute cerebrovascular disease (16 sources) Cerebrovascular accident; Translations: [Cerebral infarction, unspecified] Onset: 12-28-2016 Resolved: 08-09-2022 08-09-2022 Chronic Cardiac dysrhythmias (20 sources) Atypical atrial flutter; Translations: [Atypical atrial flutter] Onset: 12-28-2016 Resolved: 08-09-2022 08-09-2022 Chronic Cardiac dysrhythmias (16 sources) Palpitations; Translations: [Palpitations] Onset: 07-22-2011 08-09-2022 Episodic Conduction disorders (16 sources) First degree atrioventricular block; Translations: [Atrioventricular block, first degree] Onset: 07-22-2011 Resolved: 08-09-2022 08-09-2022 Chronic Mood disorders (16 sources) Mood disorders Onset: 03-04-2023 Resolved: 02-04-2024 03-04-2023 Nonspecific chest pain (18 sources) Chest pain; Translations: [Chest pain, unspecified] Onset: 07-22-2011 Resolved: 08-09-2022 08-09-2022 Episodic Other and ill-defined heart disease (16 sources) Left ventricular hypertrophy; Translations: [Cardiomegaly] Onset: 12-28-2016 Resolved: 08-09-2022 08-09-2022 Chronic Other and unspecified benign neoplasm (16 sources) Lipoma of abdominal wall; Translations: [Benign lipomatous neoplasm of skin and subcutaneous tissue of trunk] Onset: 09-27-2016 08-09-2022 Episodic Other circulatory disease (16 sources) Disorder of autonomic nervous system; Translations: [Orthostatic hypotension] Onset: 07-14-2011 08-09-2022 Episodic Residual codes; unclassified (1 source) Tobacco use; Translations: [Tobacco use] Onset: 12-24-2023 Episodic Syncope (16 sources) Syncope; Translations: [Syncope and collapse] Onset: 07-12-2011 Resolved: 08-09-2022 08-09-2022 Episodic Transient cerebral ischemia (16 sources) Transient cerebral ischemia; Translations: [Transient cerebral ischemic attack, unspecified] Onset: 08-09-2022 Resolved: 08-09-2022 08-09-2022 Chronic Unclassified (1 source) CONTACT W/AND (SUSP) EXPOS COVID-19; Translations: [CONTACT W/AND (SUSP) EXPOS COVID-19] Onset: 12-17-2020 Unclassified (10 sources) Onset: 08-08-2023 Resolved: 04-16-2024 08-08-2023 Results Test Name Value Interpretation Reference Range [facility] 12-20-2021 Albumin [Mass/Vol] 5.0 g/dL Normal 3.6-5.1 [facility] Comment on above: Performed By: #### 1 841, 4253 #### [facility] [address], [address] [place] [id number] [employer] Supervisor: Eddie Kwong MD Albumin/Globulin [Mass ratio] 2.0 {ratio} Normal 1.0-2.5 [facility] Comment on above: Performed By: #### 1 781, 9518 #### [facility] [address] [phone] [employer] Supervisor: Eddie Kwong MD ALP [Catalytic activity/Vol] 65 U/L Normal 36-130 [facility] Comment on above: Performed By: #### 1 023, 7600 #### [facility] of [address], [address] [place] [address] [employer] Supervisor: Eddie Kwong MD ALT [Catalytic activity/Vol] 55 U/L High 9-46 [facility] Comment on above: Performed By: #### 1 0231, 7600 #### [facility] of [address], [address] [place] [address] [employer] Supervisor: Eddie Kwong MD AST [Catalytic activity/Vol] 32 U/L Normal 10-40 [facility] Comment on above: Performed By: #### 1 0231, 7600 #### [facility] of [place] [address] [employer] Supervisor: Eddie Kwong MD Bilirubin [Mass/Vol] 0.7 mg/dL Normal 0.2-1.2 [facility] Comment on above: Performed By: #### 1 023, 7600 #### [facility] of [place] [address] [employer] Supervisor: Eddie Kwong MD BUN/CREATININE RATIO NOT APPLICABLE Normal 6-22 [facility] Comment on above: Performed By: #### 1 023, 7600 #### [facility] of [place] [address] [employer] Supervisor: Eddie Kwong MD Calcium [Mass/Vol] 10.2 mg/dL Normal 8.6-10.3 [facility] Comment on above: Performed By: #### 1 0231, 7600 #### [facility] of [place] [address] [employer] Supervisor: Eddie Kwong MD Chloride [Moles/Vol] 104 mmol/L Normal 98-110 [facility] Comment on above: Performed By: #### 1 0231, 7600 #### [facility] of [place] [address] [employer] Supervisor: Eddie Kwong MD CO2 [Moles/Vol] 24 mmol/L Normal 20-32 [facility] Comment on above: Performed By: #### 1 023, 7600 #### [facility] [place] [address] [employer] Supervisor: Eddie Kwong MD Creatinine [Mass/Vol] 0.81 mg/dL Normal 0.60-1.35 [facility] Comment on above: Performed By: #### 1 023, 7600 #### [facility] [place] [address] [employer] Supervisor: Eddie Kwong MD eGFR NON-AFR. BOLIVIAN 118 mL/min/1.73m2 Normal > OR = 60 [facility] Comment on above: Performed By: #### 1 023, 760 #### [facility] [place] [address] [employer] Supervisor: Eddie Kwong MD GFR/1.73 sq M.predicted among blacks MDRD (S/P/Bld) [Vol rate/Area] 137 mL/min/{1.73_m2} Normal > OR = 60 [facility] Comment on above: Performed By: #### 1 023, 7600 #### [facility] [place] [address] [employer] Supervisor: Eddie Kwong MD Globulin (S) [Mass/Vol] 2.5 g/dL Normal 1.9-3.7 [facility] Comment on above: Performed By: #### 1 230, 7600 #### [facility] [place] [address] [employer] Supervisor: Eddie Kwong MD Glucose [Mass/Vol] 80 mg/dL Normal 65-99 [facility] Comment on above: Result Comment: Fasting reference interval Performed By: #### 1 0231, 7600 #### [facility] [place] [address] [employer] Supervisor: Eddie Kwong MD Potassium [Moles/Vol] 4.3 mmol/L Normal 3.5-5.3 [facility] Comment on above: Performed By: #### 1 0231, 7600 #### [facility] of [address], [address] [place] [address] [employer] Supervisor: Eddie Kwong MD Protein [Mass/Vol] 7.5 g/dL Normal 6.1-8.1 [facility] Comment on above: Performed By: #### 1 0231, 7600 #### [facility] [address], [address] [place] [address] [employer] Supervisor: Eddie Kwong MD Sodium [Moles/Vol] 139 mmol/L Normal 135-146 [facility] Comment on above: Performed By: #### 1 0231, 7600 #### [facility] [place] [address] [employer] Supervisor: Eddie Kwong MD Urea nitrogen [Mass/Vol] 11 mg/dL Normal 7-25 [facility] Comment on above: Performed By: #### 1 023, 7600 #### [facility] [place] [address] [employer] Supervisor: Eddie Kwong MD LIPID PANEL, [place] [id number] Cholesterol [Mass/Vol] 216 mg/dL High <200 [facility] Comment on above: Order Comment: FASTI NG:YES FASTING: YES Performed By: #### 1 0231, 7600 #### [facility] [place] [address] [employer] Supervisor: Eddie Kwong MD Cholesterol in HDL [Mass/Vol] 60 mg/dL Normal > OR = 40 [facility] Comment on above: Order Comment: FASTI NG:YES FASTING: YES Performed By: #### 1 0231, 7600 #### [facility] of [place] [address] [employer] Supervisor: Eddie Kwong MD Cholesterol.total/C holesterol in HDL [Mass ratio] 3.6 {ratio} Normal <5.0 [facility] Comment on above: Order Comment: FASTI NG:YES FASTING: YES Performed By: #### 1 0231, 7600 #### [facility] of [address], [address] [place] [address] [employer] Supervisor: Eddie Kwong MD LDL-CHOLESTEROL Normal [facility] [...] of LDL-C. Rafal SS et al. ILIANA. 2013;310(19): 4463-5315 (http://education.MiniMonos/faq/AMM672) Performed By: #### 1 0231, 7600 #### [facility] [address], [address] [place] [address] [employer] Supervisor: Eddie Kwong MD NON HDL CHOLESTEROL 156 mg/dL (calc) High <130 [facility] Comment on above: Order Comment: FASTI NG:YES FASTING: YES Result Comment: For patients with diabetes plus 1 major ASCVD risk factor, treating to a non-HDL-C goal of <100 mg/dL (LDL-C of <70 mg/dL) is considered a therapeutic option. Performed By: #### 1 0231, 7600 #### [facility] [address], [address] [place] [address] [employer] Supervisor: Eddie Kwong MD Triglyceride [Mass/Vol] 406 mg/dL High <150 [facility] Comment on above: Order Comment: FASTI NG:YES FASTING: YES Result Comment: If a non-fasting specimen was collected, consider repeat triglyceride testing on a fasting specimen if clinically indicated. Danyel et al. J. of Clin. Lipidol. 2015;9:129-169. Performed By: #### 1 0231, 7600 #### [facility] [address], [address] [place] [address] [employer] Supervisor: Eddie Kwong MD Covid-19 PCR (CVDTBH)on SARS-CoV-2 (COVID-19) RNA ISABEL+probe Ql (Unsp spec) Not detected Normal NOT DETECTED [facility] Comment on above: Result Comment: This test is not yet approved or cleared by the [place] FDA. When there are no FDA-approved or cleared tests available, and other criteria are met, FDA can make tests available under an emergency access mechanism called an Emergency Use Authorization (EUA). The EUA for this test is supported by the [place] of Health and Human Service's (HHS's) declaration [...] Performed By: #### C VDAGS, CVDTB #### [facility] [address] [place] [address] Phoebe Woo SYMPTOMATIC COVID-19 ANTIGEN on 12-17-2020 EUA Statement SEE BELOW Normal [facility] Comment on above: Result Comment: This [...] revoked sooner. Performed By: #### C VDAGS, CVDTBH #### [facility] [address] [place] [address] Phoebe Woo SARS-CoV-2 (COVID-19) RNA ISABEL+probe Ql (Unsp spec) Negative Normal NEGATIVE [facility] Comment on above: Performed By: #### C VDAGS, CVDTB #### [facility] [address] [place], [place] [address] Phoebe Woo XR chest 2V*on 12-17-2020 XR chest 2V* [facility] Main [place] [address] [place] [address] XRay Report Signed Patient: Moy Bledsoe MR#: [id number] : 1990 Acct:[id number] Age/Sex: 30 / M ADM Date: 12/17/20 Loc: [facility] Room: Type: [facility] Attending Dr: Madonna MARTINO Ordering Provider: [...] Amna Cazares M.D.12/17/2020 10:48 AM Dictation Location: [place] [address] Transcribed By: [facility] 12/17/20 1048 Dictated By: Amna Cazares MD 12/17/20 1047 Signed By: 12/17/20 1048 [facility] Vital Signs Date Time Vital Sign Value Performing Clinician Catalina bernal 08-08-2023 08:12-0500 Body height 190.5 cm Tracy Jackson SERVICE ORDER TAKER-BULK FLUIDS HANDLER Work Phone: [facility] 08-08-2023 08:12-0500 Body mass index (BMI) [Ratio] 39.55 kg/m2 Tracy LOUISEBULK FLUIDS HANDLER Work Phone: [facility] 08-08-2023 08:12-0500 Body temperature 98.2 [degF] Tracy Jackson APRN-BULK FLUIDS HANDLER Work Phone: [facility] 08-08-2023 08:12-0500 Body weight 143.52 kg Tracy Jackson APRN-BULK FLUIDS HANDLER Work Phone: [facility] 08-08-2023 08:12-0500 Diastolic blood pressure 60 mm[Hg] Tracy Jackson APRN-BULK FLUIDS HANDLER Work Phone: [facility] 08-08-2023 08:12-0500 Heart rate 91 /min Tracy LOUISEBULK FLUIDS HANDLER Work Phone: [facility] 08-08-2023 08:12-0500 SaO2% (BldA) [Mass fraction] 96 % Tracy Jackson APRN-BULK FLUIDS HANDLER Work Phone: [facility] 08-08-2023 08:12-0500 Systolic blood pressure 110 mm[Hg] Tracy LOUISEBULK FLUIDS HANDLER [facility] Encounter Date Encounter Type Care Provider Facility Start: 07-27-2024 End: 07-28-2024 Telephone encounter Leonides Andrea DO Work Phone: [facility] Start: 07-25-2024 End: 07-25-2024 Refill Leonides Preciadolong DO Work Phone: [facility] Comment on above: Morbid obesity due t o excess calories (CMS-HCC) (Primary Dx) Start: 06-30-2024 End: 07-01-2024 Refill Leonides Smalls Furlong DO Work Phone: [facility] Comment on above: Anxiety Start: 05-05-2024 End: 05-05-2024 Refill Desmond Alas APRN-PILL PACKER [facility] Comment on above: COVID-19 Start: 04-16-2024 End: 04-16-2024 Office outpatient visit 15 minutes Desmond Alas SERVICE ORDER TAKER-PILL PACKER Work Phone: [facility] Comment on above: COVID-19 (Primary Dx ); Chest wall pain Start: 04-16-2024 End: 04-17-2024 Refill Leonides G Gully DO Work Phone: [facility] Start: 02-04-2024 End: 02-04-2024 ambulatory [facility] Start: 12-24-2023 End: 12-24-2023 ambulatory [facility] Start: 12-24-2023 Encounter for genera l adult medical examination without abnormal findings [facility] Start: 12-05-2023 End: 12-05-[address] [facility] Start: 10-21-2023 End: 10-21-2023 Refill Tracy Jackson SERVICE ORDER TAKER-BULK FLUIDS HANDLER Work Phone: [facility] Start: 10-10-2023 End: 10-13-2023 Refill Tracy Jackson SERVICE ORDER TAKER-BULK FLUIDS HANDLER Work Phone: [facility] Comment on above: Anxiety Start: 08-15-2023 Refill Tracy Jackson SERVICE ORDER TAKER-BULK FLUIDS HANDLER Work Phone: [facility] Start: 08-08-2023 End: 08-08-2023 Office outpatient visit 25 minutes Tracy Jackson SERVICE ORDER TAKER-BULK FLUIDS HANDLER Work Phone: [facility] Comment on above: Obesity (BMI 30-39.9 ) (Primary Dx); Generalized anxiety disorder; Essential (primary) hypertension; Loss of libido Start: 08-08-2023 End: 08-08-2023 ambulatory TRACY JACKSON [facility] Start: 07-31-2023 Telephone encounter Leonides Serina Ashleigh rogel DO Work Phone: [facility] Start: 07-22-2023 Refill Tracy Jackson SERVICE ORDER TAKER-BULK FLUIDS HANDLER Work Phone: [facility] Start: 07-19-2023 Refill Leonides Serina huynh DO Work Phone: [facility] Start: 07-11-2023 [facility]ill [facility] Start: 06-20-2023 Refill Tracy Jackson SERVICE ORDER TAKER-BULK FLUIDS HANDLER Work Phone: [facility] Start: 12-17-2020 End: 12-17-2020 ambulatory MADONNA VALENZUELA Facility: Procedures Date Procedure Procedure Detail Performing Clinician Start: 02-04-2024 Follow-up visit Follow-up LEONIDES Serina ELMO Start: 02-04-2024 Adult depression screening assessment Desmond Alas SERVICE ORDER TAKER-PILL PACKER Work Phone: Start: 08-08-2023 Adult depression screening assessment Tracy Jackson SERVICE ORDER TAKER-BULK FLUIDS HANDLER Work Phone: Start: 03-04-2023 Adult depression screening assessment Tracy Jackson SERVICE ORDER TAKER-BULK FLUIDS HANDLER Work Phone: Plan of Treatment Date Care Activity Detail Author Start: 04-16-2025 Adult BMI Follow Up Plan Adult BMI Follow Up Plan [facility] Start: 04-16-2025 Tobacco Screening Tobacco Screening [facility] Start: 02-03-2025 Adult BMI Screening Adult BMI Screen ing [facility] Start: 02-03-2025 Depression Screening Depression Scre [facility] Start: 08-08-2024 Adult BMI Follow Up Plan Adult BMI Follow Up Plan [facility] Start: 08-08-2024 Adult BMI Screening Adult BMI Screen ing [facility] Start: 08-08-2024 Depression Screening Depression Scre [facility] Start: 08-08-2024 Tobacco Screening Tobacco Screening [facility] Start: 08-06-2024 End: 08-06-2024 Patient encounter procedure 08/06/2024 4:30 PM EST Office Visit [facility] [address] [place] [address] Leonides Andrea DO [address] [facility] [address] [facility] Start: 03-04-2024 Adult BMI Screening Adult BMI Screen ing [facility] Start: 03-04-2024 Depression Screening Depression Scre ening [facility] Start: 03-04-2024 Tobacco Screening Tobacco Screening [facility] Start: 02-16-2024 COVID-19 Vaccine ( season) COVID-19 Vaccine ( season) [facility] Start: 02-16-2024 Influenza vaccination Influenza Vacc ine [facility] Start: 02-15-2023 COVID-19 Vaccine ( season) COVID-19 Vaccine ( season) [facility] Start: 02-15-2023 Influenza vaccination Influenza Vacc ine [facility] Start: 2008 Adult BMI Follow Up Plan Adult BMI Follow Up Plan [facility] Start: 2001 DTaP,Tdap and Td Vaccines (6 - Tdap) DTaP,Tdap and Td Vaccines (6 - Tdap) [facility] Immunizations Immunization Date Immunization Notes Care Provider Fa cility 04-24-2023 influenza, injectabl e, quadrivalent, preservative free Tracy Jacskon APRN-BULK FLUIDS HANDLER Work Phone: [facility] 04-24-2023 influenza virus vaccine, unspecified formulation Tracy Jackson APRN-BULK FLUIDS HANDLER Work Phone: [facility] 04-10-2022 Covid-19, Mrna, Lnp- s, Bivalent, Pf, 50mcg/0.5ml or 25mcg/0.25ml Tracy Jackson SERVICE ORDER TAKER-BULK FLUIDS HANDLER Work Phone: [facility] 04-10-2022 influenza, injectabl e, quadrivalent, contains preservative Tracy Jackson SERVICE ORDER TAKER-BULK FLUIDS HANDLER Work Phone: [facility] 04-10-2022 influenza virus vaccine, unspecified formulation Tracy Jackson SERVICE ORDER TAKER-BULK FLUIDS HANDLER Work Phone: [facility] 04-29-2021 influenza, seasonal, injectable Tracy Jackson SERVICE ORDER TAKER-BULK FLUIDS HANDLER Work Phone: [facility] 10-12-2020 COVID-19, mRNA, LNP- S, PF, 100mcg/0.5mL Dose Tracy Jackson SERVICE ORDER TAKER-BULK FLUIDS HANDLER Work Phone: [facility] 09-28-2020 COVID-19, mRNA, LNP- S, PF, 100mcg/0.5mL Dose Tracy Jackson SERVICE ORDER TAKER-BULK FLUIDS HANDLER Work Phone: [facility] 09-14-2020 COVID-19, mRNA, LNP- S, PF, 100mcg/0.5mL Dose Tracy Jackson SERVICE ORDER TAKER-BULK FLUIDS HANDLER Work Phone: [facility] 04-20-2020 influenza, injectabl e, quadrivalent, contains preservative Tracy Jackson SERVICE ORDER TAKER-BULK FLUIDS HANDLER Work Phone: [facility] 03-19-2019 Influenza, injectabl e, Madin Asmita Canine Kidney, preservative free, quadrivalent Tracy Jackson SERVICE ORDER TAKER-BULK FLUIDS HANDLER Work Phone: [facility] 06-18-2000 hepatitis B vaccine, pediatric or pediatric/adolescent dosage Tracy Jackson SERVICE ORDER TAKER-BULK FLUIDS HANDLER Work Phone: [facility] 12-18-1999 hepatitis B vaccine, pediatric or pediatric/adolescent dosage Tracy Jackson SERVICE ORDER TAKER-BULK FLUIDS HANDLER Work Phone: [facility] 11-17-1999 hepatitis B vaccine, pediatric or pediatric/adolescent dosage Tracy Jackson SERVICE ORDER TAKER-BULK FLUIDS HANDLER Work Phone: [facility] 09-23-1995 diphtheria, tetanus toxoids and acellular pertussis vaccine, unspecified formulation Tracy Jackson SERVICE ORDER TAKER-BULK FLUIDS HANDLER Work Phone: [facility] 09-23-1995 measles, mumps and rubella virus vaccine Tracy Jackson SERVICE ORDER TAKER-BULK FLUIDS HANDLER Work Phone: [facility] 09-23-1995 trivalent poliovirus vaccine, live, oral Tracy Jackson SERVICE ORDER TAKER-BULK FLUIDS HANDLER Work Phone: [facility] 02-29-1992 diphtheria, tetanus toxoids and pertussis vaccine Tracy Jackson SERVICE ORDER TAKER-BULK FLUIDS HANDLER Work Phone: [facility] 02-29-1992 trivalent poliovirus vaccine, live, oral Tracy Jackson SERVICE ORDER TAKER-BULK FLUIDS HANDLER Work Phone: [facility] 12-14-1991 haemophilus influenz ae type b vaccine, conjugate unspecified formulation Tracy Jackson SERVICE ORDER TAKER-BULK FLUIDS HANDLER Work Phone: [facility] 12-14-1991 measles, mumps and rubella virus vaccine Tracy Jackson SERVICE ORDER TAKER-BULK FLUIDS HANDLER Work Phone: [facility] 03-02-1991 diphtheria, tetanus toxoids and pertussis vaccine Tracy Jackson SERVICE ORDER TAKER-BULK FLUIDS HANDLER Work Phone: [facility] 03-02-1991 haemophilus influenz ae type b vaccine, conjugate unspecified formulation Tracy Jackson SERVICE ORDER TAKER-BULK FLUIDS HANDLER Work Phone: [facility] 1990 diphtheria, tetanus toxoids and pertussis vaccine Tracy Jackson SERVICE ORDER TAKER-BULK FLUIDS HANDLER Work Phone: [facility] 1990 haemophilus influenz ae type b vaccine, conjugate unspecified formulation Tracy Jackson SERVICE ORDER TAKER-BULK FLUIDS HANDLER Work Phone: [facility] 1990 trivalent poliovirus vaccine, live, oral Tracy Jackson SERVICE ORDER TAKER-BULK FLUIDS HANDLER Work Phone: [facility] 1990 diphtheria, tetanus toxoids and pertussis vaccine Tracy Jackson SERVICE ORDER TAKER-[facility] Work Phone: [facility] 1990 haemophilus influenz ae type b vaccine, conjugate unspecified formulation Tracy Jackson SERVICE ORDER TAKER-[facility] Work Phone: [facility] 1990 trivalent poliovirus vaccine, live, oral Tracy Jackson [facility] Work Phone: [facility] Payers Date Payer Category Payer Blue [employer] [facility] - Other ANTHEM Member Subscriber Plan / Payer (Effective 2016-Present) Name: Moy Bledsoe Relation to Subscriber: Self Name: Moy Bledsoe Payer ID: [id number] (NAIC) Type: Not on file Address: [address] [place] [id number] 2016 Unknown ANTHCHU BCBS OUT OF STATE PPO/TRUST [id number] 2016-Present [phone] [address] [place] [address] [id number] 1990 Unknown [id number] 1990 Unknown [id number] 1990 Unknown [id number] 1990 Unknown [id number] 1990 Unknown [id number] 1990 Unknown [id number] 1959 Unknown [id number] Social History Date Type Detail Facility Start: 08-09-2022 Tobacco smoking status NHIS Ex-smoker [facility] History of tobacco use Current smoker [facility] History of tobacco use Cigarette Smoker P [facility] Start: 08-09-2022 Tobacco use and exposure Smokeless tobacco non-user [facility] Start: 03-04-2023 End: 04-16-2024 Alcohol intake Current drinker of alcohol (finding) [facility] Start: 03-04-2023 End: 12-24-2023 History of Social function [facility] Start: 03-04-2023 End: 12-24-2023 Tobacco use panel [facility] Adolescent depressio n screening assessment 18 [facility] Start: 08-09-2022 Alcohol Comment occasionally [facility] Start: 1990 Sex Assigned At Not on file [facility] Start: 1990 Sex Assigned At Male [facility] Start: 08-05-2023 Gender identity Identifies as male gender (finding) [facility] Has the [facility], [employer], oil, or water company threatened to shut off services in your home in past 12Mo No [facility] Do you belong to any clubs or organizations such as amish groups, unions, fraternal or athletic groups, or school groups? Yes [facility] Are you now , , , , never or living with a partner? [facility] How often to you hav e a drink containing alcohol? Monthly or less [facility] How many standard dr inks containing alcohol do you have on a typical day? 1 or 2 [facility] How often do you hav e 6 or more drinks on 1 occasion? Never [facility] Do you feel stress - tense, restless, nervous, or anxious, or unable to sleep at night because your mind is troubled all the time - these days [OSQ] Very much [facility] Start: 01-20-2015 Sex Male (finding) [facility] Clinical Notes 07-31-2023 to 07-27-2024 Telephone Encounter - [facility] - 07/27/2024 3:14 PM ESTTelephone Encounter - [facility] - 07/27/2024 3:14 PM ESTTelephone Encounter - [facility] - 07/27/2024 3:14 PM EST Note Date & Type Note Facility 07-27-2024 Miscellaneous Notes Formattin g of this note might be different from the original. weight recheck appointment. LM on VM documented in this encounter [facility] 07-27-2024 Telephone encount er Note weight recheck appointment. [facility] 07-27-2024 Telephone encount er Note LM on VM [facility] 07-25-2024 Miscellaneous Notes Formattin g of this note might be different from the original. He needs a weight recheck appointment. Make it a wellness if he is due for that documented in this encounter [facility] 07-25-2024 Telephone encount er Note He needs a weight recheck appointment. Make it a wellness if he is due for that [facility] 04-16-2024 History of Presen t illness Narrative Images from the original note were not included. [address] [facility] [address] SUBJECTIVE: Video Visit via Real-time Synchronous Audiovisual Provider Location: [facility] [address] [place] [address] Patient Location: Patient's home Video Visit Consent [...] that there are some limitations compared to [id number] evaluations. The patient consented to the presence [...] EXTRACTION Past Medical History: Diagnosis Date A-fib ([facility] Anxiety Depression First degree AV block 07/22/2011 Hyperlipidemia Hypertension Left ventricular hypertrophy 12/28/2016 Last Assessment & Plan: Mild left ventricular hypertrophy noted on echocardiogram performed February 2016 but the patient has a strong family history of hypertrophic cardiomyopathy in in at least 3 family members. Cardiac MRI performed at [facility] in 2016 did not show any features [...] procedures Follow-up: Next scheduled HAZEL Pratt 04/16/24 [id number] documented in this encounter [facility] [employer] 08-08-2023 History of Presen t illness Narrative Subjective Patient ID: Moy Bledsoe is a 33 y.o. male. Here for weight check on wego, in Feb he was 338, today he [...] doing well with this and discussed his buttermaker goals His blood pressure is stable and [...] MALINDA Tsai 08/08/231123 documented in this encounter [facility] 07-31-2023 Miscellaneous Notes Formattin g of this note might be different from the original. ----- Message from MALINDA Tsai sent at 07/22/2023 11:00 AM EST ----- Regarding: apt is due I am refilling his meds but he is due for an apt Attempted contact alek lucas documented in this encounter [facility] 07-31-2023 Telephone encount er Note ----- Message from MALINDA Tsai sent at 07/22/2023 11:00 AM EST ----- Regarding: apt is due I am refilling his meds but he is due for an apt [facility] 07-31-2023 Telephone encount er Note Attempted contact alek lucas [facility] Evaluation note Diagnosis Obesity (BMI 30-39.9)- Primary Generalized anxiety disorder Essential (primary) hypertension Unspecified essential hypertension Loss of libido Decreased libido [facility] COVID-19- Primary Chest wall pain Painful respiration [facility] Diagnosis COVID-19 [facility] Diagnosis Anxiety Anxiety state, unspecified [facility] Diagnosis Morbid obesity due to excess calories (CMS-HCC)- Primary [facility] Diagnosis Anxiety Anxiety state, unspecified [facility] filedocumented in this encounter [facility] filedocumented in this encounter [facility] on filedocumented in this encounter [facility] on filedocumented in this encounter [facility]* Attachments The following attachments cannot be sent through Care Everywhere. * COVID-19 overview (Bulgarian) documented [facility]Pro[facility] System[facility]ructionsNot on file documented in this encounterPro[facility]ica [facility] SystemInstructionsNot on file [facility] in [facility]ructionsNot on file [facility] Purpose Family History No Family [...] content) DATE CREATED AUTHOR 12/24/2020 [facility] DATE CREATED AUTHOR AUTHOR'S ORGANIZ ATION 07/09/[address] [facility] DATE CREATED AUTHOR AUTHOR'S ORGANIZ ATION 12/20/2021 [facility] DATE CREATED AUTHOR AUTHOR'S ORGANIZ ATION 04/18/20[facility] Reason for Visit (unrecogniz ed section and content) Reason Onset Date Comments Med Refill 07/11/2023 Reason Onset Date Comments Med Refill 07/22/2023 Reason Onset Date Comments Med Refill 07/19/2023 Reason Comments Weight Check Reason Onset Date Comments Med Refill 08/15/2023 Reason Comments COVID Reason Onset Date Comments Med Refill 04/16/2024 Reason Comments Med Refill Reason Comments Med Refill Reason Onset Date Comments Med Refill 10/10/2023 Reason Onset Date Comments Med Refill 06/20/2023 Care Teams (unrecognized sec tion and content) Stemhole Borer And Topper Relationship Specialty Start Date End Date Leonides Andrea DO [address] [place] [address] PCP - General Family Medicine 04/16/22 [employer] To[employer] Relationship Specialty Start Date End Date Leonides Andrea DO [address] [place] [address] PCP - General Family Medicine 04/16/22 [employer]emhole Borer And Topper Relationship Specialty Start Date End Date Leonides Andrae DO [address] [place] [address] PCP - General Family Medicine 04/16/22 Stemhole Borer And Topper Relationship Specialty Start Date End Date Tracy Jackson, JEFFERSON-BULK FLUIDS HANDLER [address] [place] [address] PCP - General Internal Medicine 08/05/23 Stemhole Borer And Topper Relationship Specialty Start Date End Date Tracy Jackson APRN-BULK FLUIDS HANDLER [address] [facility] [place] [address] PCP - General Internal Medicine 08/05/23 Stemhole Borer And Topper Relationship Specialty Start Date End Date Leonides Andrea DO [address] [place] [address] PCP - General Family Medicine 12/05/23 Stemhole Borer And Topper Relationship Specialty Start Date End Date Leonides Andrea DO [address], [place] [address] PCP - General Family Medicine 12/05/23 Stemhole Borer And Topper Relationship Specialty Start Date End Date Leonides Andrea DO [address], [place] [address] PCP - General Family Medicine 12/05/23 Stemhole Borer And Topper Relationship Specialty Start Date End Date Leonides Andrea DO [address], [place] [address] PCP - General Family Medicine 12/05/23 Stemhole Borer And Topper Relationship Specialty Start Date End Date Renetta Vicky, SERVICE ORDER TAKER-[facility] [address] [facility] [place] [address] PCP - General Internal Medicine 08/05/23 Stemhole Borer And Topper Relationship Specialty Start Date End Date Leonides Andrea DO [address], [place] [address] PCP - General Family Medicine 12/05/23 FOR [...] BE BASED ON THE PRIMARY CLINICAL RECORDS. [facility] [employer] [facility]. provides no warranty or guarantee of the accuracy or completeness of information in this document.
[2024-07-31 12:28] LABS: Basophils Percent Auto 0.3 % (0.2-2.0); Eosinophils Absolute Auto 0.1 10^3/uL (0.0-0.7); Eosinophils Percent Auto 1.4 % (0.9-7.0); Hematocrit 46.7 % (42.0-54.0); Hemoglobin 16.6 g/dL (14.0-18.0); Immature Granulocytes Abs Auto 0.05 10^3/uL (0.00-0.03); Immature Granulocytes Pct Auto 0.5 % (0.0-0.5); Lymphocytes Absolute Auto 1.9 10^3/uL (1.2-3.8); Lymphocytes Percent Auto 21.1 % (20.5-60.0); Mean Corpuscular HGB Conc 35.5 g/dL (29.9-35.2); Mean Corpuscular Hemoglobin 29.5 pg (25.9-34.0); Mean Corpuscular Volume 82.9 fL (80.0-94.0); Mean Platelet Volume 9.6 fL (9.5-13.5); Monocytes Absolute Auto 0.8 10^3/uL (0.3-0.8); Neutrophils Absolute Auto 6.2 10^3/uL (1.4-6.5); Neutrophils Percent Auto 67.7 % (43.0-75.0); Platelet Count 260 10^3/uL (150-450); Red Blood Count 5.63 10^6/uL (4.70-6.10); Red Cell Distribution Width 12.9 % (11.0-15.0); White Blood Count 9.2 10^3/uL (4.0-11.0)
[2024-07-31] MEDS: DICYCLOMINE HCL 20 MG/2 ML VIAL IM (12:32)
[2024-07-31] MEDS: KETOROLAC TROMETHAMINE 30 MG/ML VIAL 15 MG IVP (12:33)
[2024-07-31] MEDS: ONDANSETRON PF 4 MG/2 ML VIAL IV (12:33)
[2024-07-31 12:42] LABS: Alanine Aminotransferase 66 U/L (16-63); Albumin Globulin Ratio 1.4; Albumin Level 4.5 g/dL (3.4-5.0); Alkaline Phosphatase 62 U/L (46-116); Anion Gap 13.8; Aspartate Amino Transferase 38 U/L (15-37); Bilirubin Total 1.1 mg/dL (0.2-1.0); Calcium 9.4 mg/dL (8.5-10.1); Carbon Dioxide 28.1 mmol/L (21.0-32.0); Chloride 102 mmol/L (98-107); Estimated GFR (African America >60 (>=60 mL/min/1.73m^2); Estimated GFR (Non-African Ame >60 (>=60 mL/min/1.73m^2); Globulin 3.2 g/dL; Glucose 92 mg/dL (74-106); Potassium 3.9 mmol/L (3.5-5.1); Sodium 140 mmol/L (136-145); Total Protein 7.7 g/dL (6.4-8.2)
[2024-07-31 12:46] LABS: Lactate/Lactic Acid 1.1 mmol/L (0.4-2.0)
[2024-07-31] MEDS: 0.9 % SODIUM CHLORIDE 1,000 ML 1000 ML IV (12:46)
[2024-07-31 12:48] VITALS: BP 112/62; PULSE 75; O2SAT 95
--- NOTE | 2024-07-31 14:53 | ED.GENADUL1 ---
HPI HPI - General Adult General Chief complaint: Nausea/Vomiting/Diarrhea Stated complaint: VOMITTING DIARRHEA ABDOMINAL PAIN Time Seen by Provider: 07/31/24 12:20 Mode of arrival: walk-in History of Present Illness HPI narrative: Patient is a 33-year-old male who is presenting to the ER today with chief complaint of nausea, vomiting and abdominal cramping. Patient was in the ER Saturday for similar complaints. Patient is currently taking Wegovy medication. Patient's PCP told patient to start taking the Wegovy medication because it could be causing some of his GI symptoms. Patient also smokes marijuana. Patient last smoked marijuana approxi-1 week ago. Patient does not believe he has cyclic nausea and vomiting from marijuana. Patient states that he was not aware of cyclic nausea and vomiting disorder that could occur with marijuana. Patient stated that he will stop smoking marijuana today. Patient significant other is at bedside. No headache. No chest pain or shortness of breath. Patient is having sulfur burps All systems are negative except as noted/marked. All systems reviewed and otherwise negative. Nurses note and vital signs reviewed and patient is not hypoxic. General: The patient appears well and in no apparent distress. Patient is resting comfortably on cart. Patient is not toxic, lethargic, or listless Skin: Warm, dry, no pallor noted. There is no rash noted. No petechiae, purpura. Head: Normocephalic, atraumatic Eye: Normal conjunctiva, no drainage, EOMI. PERRL Ears, Nose, Mouth, and Throat: oral mucosa is moist. Nares patent. Mouth without vesicles. Cardiovascular: Regular Rate and Rhythm, no murmur, gallop, rub Respiratory: Patient is in no distress, no accessory muscle use, lungs are clear to auscultation, no wheezing, rales or rhonchi Back: non-tender, no CVA tenderness bilaterally to percussion. No CT LS midline pain GI: Obese, diffuse mild periumbilical tenderness to palpation, no peritoneal signs, mild midepigastric tenderness to palpation, otherwise abdomen is soft, no tenderness to palpation, no masses appreciated. No rebound, guarding, or rigidity noted. No distention Musculoskeletal: Patient has full range of motion of all of the extremities, no motor, sensory, or focal neurological deficits Neurological: A&O x4, normal speech Psychiatric: Cooperative Related Data Home Medications ?Medication ?Instructions ?Recorded ?Confirmed alprazolam 0.5 mg tablet 0.5 mg PO DAILY 02/01/24 07/31/24 fluvoxamine 50 mg tablet 50 mg PO DAILY 02/01/24 07/31/24 metoprolol tartrate 50 mg tablet 50 mg PO Q12H 02/01/24 07/31/24 semaglutide (weight loss) 2.4 2.4 mg subcut Q7D 02/01/24 07/31/24 mg/0.75 mL subcutaneous pen injector (Jani) Previous Rx's ?Medication ?Instructions ?Recorded famotidine 20 mg tablet (Pepcid) 20 mg PO BID #10 tabs 07/26/24 dicyclomine 20 mg tablet 20 mg PO TID PRN abdominal pain #7 07/31/24 tabs ondansetron 4 mg disintegrating 4 mg PO Q4H PRN nausea and 07/31/24 tablet vomiting 3 days #6 tabs promethazine 25 mg rectal 25 mg RI Q6H PRN nausea and 07/31/24 suppository vomiting #6 ea Allergies Allergy/AdvReac Type Severity Reaction Status Date / Time amoxicillin Allergy Unknown Unknown Verified 06/15/24 09:42 cefaclor (From Ceclor) Allergy Unknown Unknown Verified 06/15/24 09:42 Sulfa (Sulfonamide Allergy Unknown Unknown Verified 06/15/24 09:42 Antibiotics) sulfamethoxazole (From Allergy Unknown Unknown Verified 06/15/24 09:42 Bactrim) trimethoprim (From Bactrim) Allergy Unknown Unknown Verified 06/15/24 09:42 Opioid HPI Opioid Management Most Recent Opioid Data: Last Pain Scale 7 07/31/24 12:33 07/31/24 Last MAR Pain Assessment 07/31/24 12:33 PFSH PFSH Social History Little interest or pleasure in doing things: not at all Feeling down, depressed, or hopeless: not at all Exam Constitutional Vital Signs, click to edit/add: Last Vital Signs Temp 97.7 F 07/31/24 11:28 Pulse 75 07/31/24 12:48 Resp 18 07/31/24 14:42 BP 112/62 07/31/24 12:48 Pulse Ox 95 07/31/24 12:48 O2 Del Method Room Air 07/31/24 14:42 Course Vital Signs Vital signs: Vital Signs Temperature 97.7 F 07/31/24 11:28 Pulse Rate 82 07/31/24 11:28 Respiratory Rate 18 07/31/24 11:28 Blood Pressure 135/92 H 07/31/24 11:28 Pulse Oximetry 96 07/31/24 11:28 Oxygen Delivery Method Room Air 07/31/24 11:28 Temperature 97.7 F 07/31/24 11:28 Pulse Rate 75 07/31/24 12:48 Respiratory Rate 18 07/31/24 14:42 Blood Pressure 112/62 07/31/24 12:48 Pulse Oximetry 95 07/31/24 12:48 Oxygen Delivery Method Room Air 07/31/24 14:42 Medical Decision Making MDM Narrative Medical decision making narrative: Reexamination of patient's abdomen at discharge shows soft, nontender, no guarding, rebound, rigidity. Minimal midepigastric tenderness to palpation. Patient feels much better after IV fluids and medications given in the ER. Education on cyclic nausea and vomiting secondary to marijuana use was discussed. Education on using [id number] Pepcid to continue helping treat acid reflux was discussed along with using Maalox or Mylanta if needed. Patient will go on PCP recommendations of not taking Wegovy anymore. Patient was sent home with refill of Zofran, also given Phenergan suppositories and Bentyl. Work note was given to the patient significant other. No questions at discharge. Lipase was elevated, but not x 3 times the upper limits of normal. Education on pancreatitis, acid reflux, gastritis, GI symptoms were discussed. Patient feels much better at discharge. Lab Data Labs: Lab Results 07/31/24 Range/Units 12:05 WBC 9.2 (4.0-11.0) 10^3/uL RBC 5.63 (4.70-6.10) 10^6/uL Hgb 16.6 (14.0-18.0) g/dL Hct 46.7 (42.0-54.0) % MCV 82.9 (80.0-94.0) fL MCH 29.5 (25.9-34.0) pg MCHC 35.5 H (29.9-35.2) g/dL RDW 12.9 (11.0-15.0) % Plt Count 260 (150-450) 10^3/uL MPV 9.6 (9.5-13.5) fL Neut % (Auto) 67.7 (43.0-75.0) % Lymph % (Auto) 21.1 (20.5-60.0) % Navarro % (Auto) 9.0 (1.7-12.0) % Eos % (Auto) 1.4 (0.9-7.0) % Baso % (Auto) 0.3 (0.2-2.0) % Neut # (Auto) 6.2 (1.4-6.5) 10^3/uL Lymph # (Auto) 1.9 (1.2-3.8) 10^3/uL Navarro # (Auto) 0.8 (0.3-0.8) 10^3/uL Eos # (Auto) 0.1 (0.0-0.7) 10^3/uL Baso # (Auto) 0.0 (0.0-0.1) 10^3/uL Abs Immat Gran (auto) 0.05 H (0.00-0.03) 10^3/uL Imm/Tot Granulo (auto) 0.5 (0.0-0.5) % Sodium 140 (136-145) mmol/L Potassium 3.9 (3.5-5.1) mmol/L Chloride 102 (98-107) mmol/L Carbon Dioxide 28.1 (21.0-32.0) mmol/L Anion Gap 13.8 BUN 12.0 (7.0-18.0) mg/dL Creatinine 1.20 (0.70-1.30) mg/dL Est GFR ( Amer) >60 (>=60 mL/min/1.73m^2) Est GFR (Non-Af Amer) >60 (>=60 mL/min/1.73m^2) BUN/Creatinine Ratio 10.0 Glucose 92 (74-106) mg/dL Lactate 1.1 (0.4-2.0) mmol/L Calcium 9.4 (8.5-10.1) mg/dL Total Bilirubin 1.1 H (0.2-1.0) mg/dL AST 38 H (15-37) U/L ALT 66 H (16-63) U/L Alkaline Phosphatase 62 (46-116) U/L Total Protein 7.7 (6.4-8.2) g/dL Albumin 4.5 (3.4-5.0) g/dL Globulin 3.2 g/dL Albumin/Globulin Ratio 1.4 Lipase 169.0 H (16.0-77.0) U/L Discharge Plan Discharge Stand Alone Forms: Accompanying Patient Form Chief Complaint: Nausea/Vomiting/Diarrhea Clinical Impression: Abdominal cramping, Nausea and vomiting, Marijuana use Patient Disposition: Home, Self-Care Time of Disposition Decision: 14:49 Condition: Good Prescriptions / Home Meds: New dicyclomine 20 mg tablet 20 mg PO TID PRN (Reason: abdominal pain) Qty: 7 0RF ondansetron 4 mg tablet,disintegrating 4 mg PO Q4H PRN (Reason: nausea and vomiting) 3 Days Qty: 6 0RF promethazine 25 mg suppository 25 mg RI Q6H PRN (Reason: nausea and vomiting) Qty: 6 0RF No Action famotidine [Pepcid] 20 mg tablet 20 mg PO BID Qty: 10 0RF alprazolam 0.5 mg tablet 0.5 mg PO DAILY metoprolol tartrate 50 mg tablet 50 mg PO Q12H fluvoxamine 50 mg tablet 50 mg PO DAILY Wegovy 2.4 mg/0.75 mL pen injector 2.4 mg SUBCUT Q7D Print Language: Gibraltarian Instructions: Acute Nausea and Vomiting (ED), Cannabis Use Disorder (ED), Abdominal Pain (ED), Cyclic Vomiting Syndrome (ED) Additional Instructions: Use Zofran as needed to help with nausea and vomiting. Use Bentyl as needed for cramping. Use Phenergan suppositories if needed for intractable nausea vomiting. Stop smoking marijuana. Follow-up with PCP for further recommendations. Use [id number] Pepcid daily for the next 1 to 2 weeks. Use [id number] Maalox or Mylanta if needed for any type of acute heartburn or flareups. Referrals: ANTONIETA BORREGO [Primary Care Provider] - 1 week Discharge Date/Time: 07/31/24 14:58
== END 2024-07-31 14:58 | disposition home or self-care (01) ==
PROVIDERS: Emergency Provider Emergency Medicine; PCP Family Medicine
DX: R10.9 Unspecified abdominal pain (principal); R11.2 Nausea with vomiting, unspecified; Z79.899 Other long term (current) drug therapy
CPT/HCPCS: 36415; 80053; 80076; 83605; 83690; 85025; 96361; 96372; 96374; 96375; 99284; J0500; J1885; J2405